=== PATIENT | male | born 1955 | race Caucasian/White ===

== ENCOUNTER → 2019-09-26 | Outpatient (CLI) | payer OTHER ==
[~2019-09-26] MED LIST: CHLO25 PO; Norco 5-325 Ta1 EACH PO; Ventolin/Prove6.7 GM INH
== END | disposition home or self-care (01) ==
LOC: OLS 16:38 → LAB SHORT 16:38
PROVIDERS: Family Medicine
DX: R94.4 Abnormal results of kidney function studies (principal)
CPT/HCPCS: 81050; 82570

== ENCOUNTER 2023-08-10 18:10 | Inpatient (IN) | payer MEDICARE, OTHER ==
[~2023-08-10] VITALS: Ht 170.2 cm; Wt 56.9 kg
[2023-08-10 18:36] LABS: Source, Urine Clean Catch
[2023-08-10 18:46] LABS: Appearance, Urine Clear (Clear); Bilirubin, Urine Neg (Neg); Blood, Urine Neg (Neg); Color, Urine Yellow (P-Yellow); Glucose Qualitative, Urine Neg (Neg); Ketones, Urine Neg (Neg); Leukocyte Esterase, Urine Neg (Neg); Nitrite, Urine Neg (Neg); Protein, Urine Neg (Neg); Specific Gravity, Urine 1.005 (1.003-1.022); Urobilinogen, Urine NORM (Normal)
[2023-08-10 19:34] LABS: BASOPHILS ABSOLUTE AUTO 0.07 K/mm3 (0.00-0.23); BASOPHILS PERCENT AUTO 1 % (0-2); EOSINOPHILS ABSOLUTE AUTO 0.03 K/mm3 (0.00-0.68); EOSINOPHILS PERCENT AUTO 0 % (0-6); Hematocrit 43.2 % (37.0-53.0); Hemoglobin 14.8 g/dL (13.5-17.5); IMMATURE GRAN ABSOLUTE AUTO 0.11 K/mm3 (0.00-0.10); IMMATURE GRAN PERCENT AUTO 1 % (0-1); LYMPHOCYTES ABSOLUTE AUTO 1.55 K/mm3 (0.84-5.20); LYMPHOCYTES PERCENT AUTO 11 % (21-46); MONOCYTES ABSOLUTE AUTO 1.21 K/mm3 (0.16-1.47); MONOCYTES PERCENT AUTO 9 % (4-13); Mean Corpuscular HGB 33.6 pg (26.0-34.0); Mean Corpuscular HGB Conc 34.3 g/dL (31.5-36.5); Mean Corpuscular Volume 98 fL (80-100); Mean Platelet Volume 9.9 fL (9.1-12.4); NEUTROPHILS ABSOLUTE AUTO 11.02 K/mm3 (1.96-9.15); NEUTROPHILS PERCENT AUTO 79 % (41-73); Platelet Count 269 K/mm3 (150-400); RDW Coefficient Variation 13.8 % (11.7-14.2); RDW Standard Deviation 49.8 fL (35.1-46.3); White Blood Cell Count 13.99 K/mm3 (4.00-11.30)
[2023-08-10 19:45] LABS: Albumin, Blood 2.7 g/dL (3.4-5.0); Albumin/Globulin Ratio 0.6 (0.8-1.8); Bilirubin, Total 0.9 mg/dL (0.1-1.0); Bun/Creatinine Ratio 1.8 (12.0-20.0); Calcium, Blood 8.5 mg/dL (8.5-10.1); Creatinine, Blood 0.57 mg/dL (0.60-1.20); Globulin, Blood 4.3 g/dL (2.2-4.0); Potassium, Blood 3.1 mmol/L (3.5-5.5)
[2023-08-11 03:04] LABS: Influenza A, PCR NEGATIVE (NEGATIVE); Influenza B, PCR NEGATIVE (NEGATIVE); Resp Syncytial Virus, PCR NEGATIVE (NEGATIVE); SARS-Cov-2 (COVID-19) PCR, MMC NEGATIVE (NEGATIVE)
[2023-08-11 03:30] VITALS: BP 98/63
[2023-08-11 03:32] LABS: BASOPHILS ABSOLUTE AUTO 0.02 K/mm3 (0.00-0.23); BASOPHILS PERCENT AUTO 0 % (0-2); EOSINOPHILS PERCENT AUTO 0 % (0-6); Hematocrit 36.4 % (37.0-53.0); Hemoglobin 12.5 g/dL (13.5-17.5); IMMATURE GRAN ABSOLUTE AUTO 0.15 K/mm3 (0.00-0.10); IMMATURE GRAN PERCENT AUTO 1 % (0-1); LYMPHOCYTES ABSOLUTE AUTO 0.21 K/mm3 (0.84-5.20); LYMPHOCYTES PERCENT AUTO 2 % (21-46); MONOCYTES PERCENT AUTO 2 % (4-13); Mean Corpuscular HGB 33.5 pg (26.0-34.0); Mean Corpuscular HGB Conc 34.3 g/dL (31.5-36.5); Mean Corpuscular Volume 98 fL (80-100); NEUTROPHILS ABSOLUTE AUTO 11.94 K/mm3 (1.96-9.15); NEUTROPHILS PERCENT AUTO 95 % (41-73); Platelet Count 180 K/mm3 (150-400); RDW Coefficient Variation 13.8 % (11.7-14.2); RDW Standard Deviation 49.5 fL (35.1-46.3); Red Blood Cell Count 3.73 M/mm3 (4.30-5.90); White Blood Cell Count 12.62 K/mm3 (4.00-11.30)
[2023-08-11 04:04] VITALS: BP 99/78
[2023-08-11 04:09] LABS: Albumin, Blood 2.2 g/dL (3.4-5.0); Albumin/Globulin Ratio 0.6 (0.8-1.8); Bilirubin, Total 0.8 mg/dL (0.1-1.0); Bun/Creatinine Ratio 5.8 (12.0-20.0); Calcium, Blood 7.3 mg/dL (8.5-10.1); Creatinine, Blood 0.52 mg/dL (0.60-1.20); Globulin, Blood 3.5 g/dL (2.2-4.0); Potassium, Blood 3.4 mmol/L (3.5-5.5); Total Protein, Blood 5.7 g/dL (6.4-8.2)
--- NOTE | 2023-08-11 06:42 | NUR ---
PT ADMITTED TO PCU 19 AT 0330. MOVED TO BED VIA SLIDER SHEET. ALERT, ORIENTED X 2-3 BUT FORGETFUL, NEEDS REMINDING WHY HE IS IN THE HOSPITAL. DENIES ANY SOB, CHEST PAIN/PRESSURE, OR NAUSEA. BP STABLE WITH HR SR IN 70-80'S. O2 SATS > 90 WHILE AWAKE. PLACED ON 5 LPM VIA NC BY [facility] [employer] OR UNIV[facility] DUE TO DESATING TO 85% AND SUSTAINING. PT DENIES USING O2 AT HOME. PT IS LARGELY UNSURE OF HEALTH HX, REPORTS SISTER JORGE IS A NURSE AND HELPS WITH MEDICAL DECISIONS. REPORTS HE HAS DIFFICULTY SEEING AND IS [place]. CIWAH'S AT THIS TIME NEGATIVE. CALL LIGHT IN REACH. BED IN LOW POSITION. BED ALARM ON.
[2023-08-11 06:49] VITALS: BP 100/72
--- NOTE | 2023-08-11 07:15 | NUR ---
Received report from Jayna BATISTA. Patient awake in bed when entering room . He is alert and oriented and is able to commmunicate his needs. He admits to last drink almost a week ago and will continue to drink beer. He is on 3L O2 via NC and sats >90%. he has ongoing wet productive cough. His speech is clear but slow to answer. He is independent in bed for comfort. He is awaiting ST to eval and r/t possible aspiration. He has 20ga IV LW flusjed and SL'd, 20ga IV NENO and is infusing NS 75 ml/hr and potassium piggyback. He has SCD's bilateral and yellow fall risk socks.
--- NOTE | 2023-08-11 11:30 | NUR ---
ST by and changed diet to thickened liquids and puree diet. PT came by and up in chair, Patient setup for lunch. He is still oriented to to conversation and has intermitent confusion/short term memory. He continues on 3 L O2 Via NC and sats >90%. Sister called and agve updates and will be coming by. Patient states willing to go to [facility]. Patient remaisn very weak and unconditioned. SCD's in place.
--- NOTE | 2023-08-11 18:30 | NUR ---
No significant changes with patient. He went back to bed from Chair. He has been incontinent of stool and a couple times urine. He has been assisted to bedside cammode a couple times as well. He has been on 3L O2 a nd reduced to 2 L O2 via NC and sats >90%. He MAEW but really weak and needs alot more PT OT and is cooperative with care. He has been tolerating his puree diet and pills in apple sauce. Family has been by and went home after brief stay and updates.
[2023-08-11 20:02] VITALS: BP 99/75
--- NOTE | 2023-08-11 20:11 | NUR ---
ASSUMED PT CARE FROM RN ON HI. SITTING UP IN BED WATCHING TV. ASSISTED PT TO CALL SISTER, LEFT PT WITH PHONE RINGING. RETURN APPROXIMENTLY 15 MINUTES LATER, PT DOES NOT REMEMBER CALLING SISTER. ORIENTED TO SELF, LOCATION, BUT DOES NOT KNOWN DATE. PLEASANT AND COOPERATIVE. FREQUENT REORIENTATION. DENIES ANY SOB OR CHEST PAIN. O2 SATS > 90% ON 2 LPM VIA NC. RESPIRATIONS EVEN AND UNLABORED. PT HAS MOIST, OCCAIONALLY PRODUCTIVE COUGH. HR IN 60'S, NOT ON TELEMETRY. BP STABLE, SEE RECORDED VITAL SIGNS. ASSISTED PT TO SELECT DESIRECT CHANNEL ON TV. DENIES FURTHER NEEDS AT THIS TIME. CALL LIGHT IN REACH. BED IN LOW POSITION.
[2023-08-12 00:07] VITALS: BP 104/73
[2023-08-12 03:51] VITALS: BP 99/70
[2023-08-12 04:18] LABS: Hematocrit 32.9 % (37.0-53.0); Mean Corpuscular HGB 33.7 pg (26.0-34.0); Mean Corpuscular HGB Conc 33.4 g/dL (31.5-36.5); Mean Corpuscular Volume 101 fL (80-100); Platelet Count 206 K/mm3 (150-400); RDW Coefficient Variation 14.1 % (11.7-14.2); Red Blood Cell Count 3.26 M/mm3 (4.30-5.90); White Blood Cell Count 15.28 K/mm3 (4.00-11.30)
[2023-08-12 04:46] LABS: Calcium, Blood 7.5 mg/dL (8.5-10.1); Creatinine, Blood 0.57 mg/dL (0.60-1.20); Potassium, Blood 3.8 mmol/L (3.5-5.5); Thyroid Stimulating Hormone 1.75 uIU/mL (0.360-4.800)
--- NOTE | 2023-08-12 05:57 | NUR ---
SHIFT SUMMARY: NO ACUTE CHANGES NOTED DURING THIS SHIFT. VITAL SIGNS REMAIN STABLE. PT NEED REORIENTATION WHEN AWAKENED, BELIEVING HE WAS AT HOME. RELUCTENTLY AGREEING TO CARE IN THE MIDDLE OF THE NIGHT. REPOSITIONS SELF IN BED FOR COMFORT. USES URINAL WITH DIFFICULTY, ASSISTANCE NEEDED DUE TO POOR VISION. CIWAH'S LOW, SEE PT RECORD. CALL LIGHT IN REACH. BED IN LOW POSITION.
[2023-08-12 06:41] VITALS: BP 109/68
--- NOTE | 2023-08-12 07:09 | NUR ---
Received in room report from Jayna BATISTA. He is awake and watching TV. He is alert and oriented to self and able to hold conversation. He has short term memory and gets agitated as he thinks at times he is at his house and why are we there, re-directs easily. He is on RA and sats >95%. He is minimal full one person assist to bedside cammode. He is at times incontinent to stool and urine and calls at times for help. He has urinal at bedside. He has 20ga IV to LW and 20ga IV to NENO [place] and [place] ABBOTT but very weal and is independent to positioning in bed.
[2023-08-12 15:55] VITALS: BP 97/63
--- NOTE | 2023-08-12 17:26 | NUR ---
SHIFT SUMMARY PT ALERT AND ORIENTED TO PERSON, PLACE, SITUATION, BUT NOT TIME. PT THINKS IT IS THE YEAR 2020. PT GETS CONFUSED AT TIMES. LAST SHIFT REPORTED THAT IT IS VERY HARD FOR PT TO SEE. PT IS WEAK AND SBA W/WALKER IS NEEDED. BED ALARM IS SET BC PT WILL ATTEMPT TO GET OUT OF BED WITHOUT CALLING. PT HAS BEEN ON RA SINCE BEGINNING OF SHIFT AND MAINTAINING O2 SATURATION ABOVE 92%, PT DENIES SOB. PT DENIES CHEST PAIN/PRESSURE, BP OF 97/63 AND MAP OVER 65, PULSE 60'S. PT IS INCONTNENT OF URINE AND BOWELS, HOWEVER HE DOES HAVE TIMES WHEN HE KNOWS HE NEEDS TO GO. PT USES URINAL WITH ASSISTANCE AND RESTROOM WITH SBA W/WALKER. IV TO LEFT UPPER ARM FLUSHED/PATENT/SALINE LOCKED. IV TO L LOWER ARM IS FLUSHED/PATENT/SALINE LOCKED. PT HAS HAD SEVERAL PHONE CALLS TODAY FROM FAMILY/FRIENDS. PT HAS SPENT MOST OF DAY RESTING IN BED AND WATCHING FOOTBALL. PT CURRENTLY EATING DINNER AND WATCHING TV. CALL LIGHT WITHIN REACH.
[2023-08-12 19:23] VITALS: BP 98/72
--- NOTE | 2023-08-12 20:01 | NUR ---
ASSUMED PT CARE FORM RN ON DAYSHI. UP TO BATHROM WITH UNSTEADY GAIT, ABLE TO AMBULATE ALL THE WAY TO TOILET. NEED CONSTANT DIRECTION DUE TO POOR EYESITE. PT ORINETED X 2 ONLY, EASILY REORIENTED AT THIS TIME. PLEASANT AND COOPERATIVE. DENIES ANY CHEST PAIN/PRESSURE. BP STABLE, SEE PT RECORD. PT MED NO TELE STATUES. HR 50-60'S. O2 SATS > 90% ON RA. DENIES FEELING SOB. MOIST, OCCAIONALLY PRODUCTIVE COUGH. RETURNED TO BED. REORIENTED TO CALL LIGHT. BED ALARM ON. WARM BLANKET PROVIDED FOR PT COMFORT.
[2023-08-13 02:01] VITALS: BP 113/72
--- NOTE | 2023-08-13 06:41 | NUR ---
SHIFT SUMMARY: PT HAVING FREQUENT URINARY URGES, FEELING NEED TO VOID BUT ONLY ABLE TO VOID MINIMAL AMOUNT. BLADDER SCANNED FOR MAX OF 50 ML. DISCUSSED WITH PUSHPINGER HENRY DIRECT MARKETING COORDINATOR, NO NEW ORDERS AT THIS TIME, WILL CONTINUE TO MONITOR. CIWAH'S CONTINUE TO BE 3-5. VITAL SIGNS STABLE, SEE PT CHART. CALL LIGHT IN REACH. BED IN LOW POSITION. BED ALARM ON.
[2023-08-13 06:51] VITALS: BP 96/60
--- NOTE | 2023-08-13 07:30 | NUR ---
PT ALERT AND ORIENTED TO SELF, PLACE, SITUATION, BUT NOT TIME. HE IS FORGETFUL BUT EASILY RE-DRECTED. HE IS ON RA AND MAINTAINNG 02 SATURATION ABOVE 92%, PT DENIES SOB. HIS HR 60'S, BP 96/60 W/ MAP ABOVE 65, PT DENIES CHEST PAIN/PRESSURE. PT WEAK YET ABLE TO USE COMMODE AND RESTROOM WITH WALKER AND STAND BY ASSIST. PT CAN ALSO USE URINAL WITH ASSISTANCE. PT HAS EPISODES OF INCONTINENCE, ATTENDS IN PLACE AND CHANGED PRN. PT SAID HIS EYE SIGHT IS VERY BAD. HE HAS 20G IV TO UPPER L ARM & L WRIST, BOTH PATENT/FLUSHED/SALINE LOCKED. BED ALARM IS SET, PT WILL ATTEMPT TO GET OUT OF BED WITHOUT CALLING. PT CURRENTLY SLEEPING IN BED WITH TV AND LIGHTS OFF. CALL LIGHT WITHIN REACH.
[2023-08-13 09:26] LABS: Hematocrit 39.6 % (37.0-53.0); Hemoglobin 13.6 g/dL (13.5-17.5); Mean Corpuscular HGB 34.3 pg (26.0-34.0); Mean Corpuscular HGB Conc 34.3 g/dL (31.5-36.5); Mean Corpuscular Volume 100 fL (80-100); Mean Platelet Volume 9.9 fL (9.1-12.4); Platelet Count 231 K/mm3 (150-400); Red Blood Cell Count 3.96 M/mm3 (4.30-5.90); White Blood Cell Count 11.21 K/mm3 (4.00-11.30)
[2023-08-13 09:39] LABS: Bun/Creatinine Ratio 5.5 (12.0-20.0); Calcium, Blood 8.1 mg/dL (8.5-10.1); Creatinine, Blood 0.54 mg/dL (0.60-1.20); Potassium, Blood 3.6 mmol/L (3.5-5.5)
--- NOTE | 2023-08-13 19:13 | NUR ---
SHIFT SUMMARY SEE PREVIOUS NOTE. ONLY CHANGE FROM PREVIOUS NOTE IS PT HAD SPEECH EVALUATION TODAY AND WAS PLACED NPO WITH THE EXCEPTION OF APPLESAUCE WITH MEDICATIONS. PT ALSO HAD A COG EVAL DONE BY OT AND FAILED. PT HAD A FEW VISITORS AT BEDSIDE THROUGHOUT THE DAY. PT CURRENTLY RESTING IN BED, CALL LIGHT WITHIN REACH.
[2023-08-13 21:31] VITALS: BP 93/69
[2023-08-14 00:35] VITALS: BP 91/66
[2023-08-14 04:42] VITALS: BP 110/70
--- NOTE | 2023-08-14 05:57 | NUR ---
SHIFT SUMMARY: PT ORIENTED X 2-3. PT FATIGUED DURING THIS SHIFT. NO ATTEMPTS TO STAND OR GET OUT OF BED. RESTING IN BED WITH EYES CLOSED FOR MAJORITY OF SHIFT. WAKES TO NOISE BUT MINIMAL INGAGEMENT IN CONVERSATION. COOPERATIVE AND PLEASANT. PLACED ON 2 LPM VIA NC DUE TO DESATURATIONS WHILE SLEEPING TO 88%. RESPIRATIONS EVEN AND UNLABORED, DOES NOT APPEAR IN ANY DISTRESS. NO COMPLAINTS OF CHEST PAIN/PRESSURE. HR IN 80'S. BP STABLE, SEE PT RECORD. REPOSITIONED FOR COMFORT Q2H. [facility] C[facility] PROVIDED PRN FOR INCONTINENT URINE. CALL LIGHT IN REACH. BED IN LOW POSITION. BED ALARM ON.
[2023-08-14 07:48] VITALS: BP 96/74
--- NOTE | 2023-08-14 17:57 | NUR ---
SHIFT SUMMARY PT ALERT AND ORIENTED 2-3, UNSURE OF WHAT MONTH OR YEAR IT IS, CONFUSED AT TIMES. PT SAID HIS EYESIGHT IS VERY POOR AND HE IS HARD OF HEARING. PT HAS BEEN LETHARGIC TODAY AND HAS SLEPT THE MAJORITY OF THE DAY. HR 80'S, BP 96/74, PT DENIES CHEST PAIN/PRESSURE. PT'S 02 SATURATION HAS REMAINED ABOVE 92% ON RA, HE DENIES SOB. PT CONTINUES TO BE INCONTINENT, BRIEF ON AND CHANGED PRN. HE HAD A BED BATH TODAY AND ALL NEW LINENS AND HAIR WASHED. PT FAILED SPEECH EVAL AGAIN TODAY. PLAN OF NOW IS FOR PT TO HAVE BARRIUM SWALLOW EVALUATION PERFORMED TOMORROW. SPOKE WITH MD REGARDING POSSIBLE PPN NUTRITION, FLUIDS, AND LABS BEING ORDERED AND THEY SAID THEY WOULD PLACE ORDERS IF APPROPRIATE. PT'S SISTER VISITED HIM TODAY. SHE CALLED AND SAID THAT SHE WAS ABLE TO GET AN APPOINTMENT WITH [employer] FOR EMERGENCY [employer] NEXT SUNDAY, CARE MANAGEMENT AND [facility] [employer] WORKING WITH PT'S SISTER. PT CURRENTLY RESTING IN BED WITH TV ON AND CALL LIGHT WITHIN REACH.
[2023-08-14 19:52] VITALS: BP 110/85
--- NOTE | 2023-08-14 23:10 | NUR ---
PHYSICIAN CONTACT CALL PLACED TO MD REGARDING FLUIDS FOR PT. PT IS NPO EXCEPT FOR PILLS W/ APPLESAUCE. NO CURRENT FLUIDS ARE RUNNING, PLAN FOR BARIUM SWALLOW. ORDER RECEIVED TO START LR AT 75 ML/HR AT THIS TIME.
[2023-08-15 03:37] VITALS: BP 123/77
[2023-08-15 04:02] LABS: Hematocrit 40.2 % (37.0-53.0); Hemoglobin 13.6 g/dL (13.5-17.5); Mean Corpuscular HGB 33.7 pg (26.0-34.0); Mean Corpuscular HGB Conc 33.8 g/dL (31.5-36.5); Mean Corpuscular Volume 100 fL (80-100); Mean Platelet Volume 9.6 fL (9.1-12.4); Platelet Count 244 K/mm3 (150-400); RDW Standard Deviation 51.8 fL (35.1-46.3); Red Blood Cell Count 4.04 M/mm3 (4.30-5.90); White Blood Cell Count 11.05 K/mm3 (4.00-11.30)
[2023-08-15 04:24] LABS: Albumin, Blood 2.2 g/dL (3.4-5.0); Albumin/Globulin Ratio 0.6 (0.8-1.8); Bilirubin, Total 0.9 mg/dL (0.1-1.0); Calcium, Blood 8.1 mg/dL (8.5-10.1); Creatinine, Blood 0.63 mg/dL (0.60-1.20); Globulin, Blood 3.5 g/dL (2.2-4.0); Potassium, Blood 3.1 mmol/L (3.5-5.5); Total Protein, Blood 5.7 g/dL (6.4-8.2)
--- NOTE | 2023-08-15 05:18 | NUR ---
END OF SHIFT NOTE: NO ACUTE EVENTS OVERNIGHT. PT REMAINS ALERT, ORIENTED X1-2. CONFUSED BUT COOPERATIVE W/ CARE. ABLE TO COMMUNICATE NEEDS W/ STAFF. VSS. HR 60-70'S, NO TELEMETRY PER ORDERS. SBP 110-120'S, MAP >65. PT DENIES CHEST PAIN/PRESSURE. SPO2 >93% ON RA; 2-3L VIA NC APPLIED WHILE SLEEPING DUE TO DESATTING INTO 80'S. LOOSE, NONPRODUCTIVE COUGH OVERNIGHT. AFEBRILE. LR INFUSING AT 75 ML/HR PER EMAR. PT REMAINS NPO AT THIS TIME, ANTICIPATING BARIUM SWALLOW DURING DAY SHIFT. ATTENDS CHANGED TO KEEP C/D/I PT IS INCONTINENT. NO BM'S. MINIMAL SLEEP OVERNIGHT. NO OTHER NEEDS AT THIS TIME. CALL LIGHT WITHIN REACH, BED IN LOWEST POSITION. WILL REPORT TO ONCOMING RN.
[2023-08-15 07:25] VITALS: BP 115/93
--- NOTE | 2023-08-15 08:59 | NUR ---
AM NOTE: PATIENT ALERT TO SELF AND OCCASIONALLY PERSON. PATIENT RECOGNIZES COUSIN UPON ENTERING ROOM. SLOW TO RESPOND. PERRLA. FOLLOWING SIMPLE COMMANDS. VERY WEAK THROUGHOUT. PT/OT ORDERS IN PLACE. MEDICAL STATUS NO TELE. BP STABLE. PPP. DENIES CHEST PAIN/PRESSURE/PALITATIONS. ON ROOM AIR SATING ABOVE 95% LUNGS SOUNDING COARSE THROUGHOUT. FREQUENT LOOSE/MOIST COUGH, UNABLE TO PRODUCE ANY SPUTUM UPON COUGHING. SUCTION AT BEDSIDE. BOWEL TONES PRESENT. NPO AT THIS TIME. PLAN FOR BARRIUM SWALLOW TEST TODAY WITH SPEECH THERAPY. CALL LIGHT IN REACH. ATTENDS IN PLACE. COUSIN AT BEDSIDE.
--- NOTE | 2023-08-15 10:33 | NUR ---
PATIENT LEFT FOR BARRIUM SWALLOW STUDY AT THIS TIME.
--- NOTE | 2023-08-15 10:58 | NUR ---
UPDATE PROVIDED BY THIS RN TO SISTER JUWAN.
[2023-08-15 11:10] VITALS: BP 101/81
--- NOTE | 2023-08-15 12:41 | NUR ---
PATIENT FAILED BARIUM SPEECH STUDY WITH RECOMMENDATIONS FOR DOBHOFF PLACEMENT. DISCUSSED POSSBLE DOBHOFF WITH PATIENT IN SIMPLE TERMS AND PATIENT WANTING DOBHOFF AND TUBE FEEDING. THIS RN ALSO PLACED CALL TO SITER JUWAN TO UPDATE. DR. CASTANO CALLED. ORDERS FOR DOBHOFF WITH CHEST XRAY TO CONFIRM PLACEMENT AND DIETARY CONSULT. ORDERS IN PLACE, DOBHOFF PLACED BY THIS RN AND WASTE DISPOSAL LEAKAGE TESTER AT BEDSIDE. DOBHOFF CURRENTLY SITTING AT LEFT NARE AT 55CM. CHEST XRAY COMPLETED AND WAITING FOR RESULTS. PATIENT HAVING TO BE REMINDED TO NOT PULL AT TUBE. CALL LIGHT IN REACH. PATIENT SITTING UP IN BED WATCHING TV. IV FLUIDS INFUSING PER EMAR.
--- NOTE | 2023-08-15 12:48 | NUR ---
TUBE PLACEMENT CONFIRMED BY RADIOLOGY, METAL GUIDE WIRE REMOVED BY THIS RN.
--- NOTE | 2023-08-15 13:30 | NUR ---
THIS RN AT BEDSIDE SINCE DOBHOFF PLACEMENT AND PATIENT NEEDING FREQUENT REMINDERS TO NOT PULL AT DOBHOFF. PATIENT DOES WELL WITH VERBAL REDIRECTION. VIRTUAL MONITORING SET UP FOR SAFETY OF PATIENT/DOBHOFF.
[2023-08-15 15:20] VITALS: BP 105/64
--- NOTE | 2023-08-15 17:44 | NUR ---
SHIFT SUMMARY: NO ACUTE CHANGES. PATIENT REMAINS MEDICAL WITH NO TELE. SLEEPING MOST OF SHIFT, BUT WAKES TO TOUCH AND VOICE. OVERALL VERY WEAK. DIETARY CONSULT IN PLACE TO START TUBE FEED. DOBHOFF REMAINS IN PLACE AT 55CM AT LEFT NARE. VIRTUAL MONITORING IN PLACE. FRIENDS AT BEDSIDE THROUGHOUT SHIFT VISITNG WITH PATIENT. VITALS REMAINS STABLE. NPO WITH Q4 ORAL CARE. ON ROOM AIR - 2L NASAL CANNULA. NEEDING O2 WHEN PATIENT IS SLEEPING. DENIES PAIN. Q2 TURNING AND NEEDED. PATIENT INCONTINENT OF URINE. NO BOWEL MOVEMENT THIS SHIFT. CALL LIGHT IN REACH. BED ALARM IN PLACE.
[2023-08-15 19:21] VITALS: BP 99/71
--- NOTE | 2023-08-15 20:31 | NUR ---
PHYSICIAN CONTACT/RESTRAINTS PT IN BED W/ AVASURE CAMERA AT BEDSIDE. AVASURE CAMERA HAS ALARMED FREQUENTLY DUE TO PT CONTINUOUSLY TOUCHING AND PULLING DOBHOFF AND O2 NASAL CANNULA. CONCERN FOR ASPIRATION W/ DOBHOFF REMOVAL WHILE TUBE FEED IS INFUSING. CALL PLACED TO SANDIP KOENIG. ORDERS RECEIVED FOR MITT RESTRAINT INITIATION DUE TO PULLING AT DOBHOFF AND O2 CANNULA. RESTRAINTS INITIATED AT 2020, SEE DOCUMENTATION FOR DETAILS. ALUMINUM FABRICATION SUPERVISOR AWARE, PT EDUCATED ON RESTRAINT INITIATION. AVASURE CAMERA REMAINS IN PLACE FOR PT SAFETY. CALL LIGHT IN REACH.
[2023-08-16] VITALS (16 sets, daily range): BP systolic 89–116; BP diastolic 57–92
[2023-08-16 04:39] LABS: Calcium, Blood 7.9 mg/dL (8.5-10.1); Creatinine, Blood 0.5 mg/dL (0.60-1.20); Potassium, Blood 3.3 mmol/L (3.5-5.5)
--- NOTE | 2023-08-16 05:07 | NUR ---
END OF SHIFT NOTE: NO ACUTE EVENTS OVERNIGHT. PT REMAINS ALERT, ORIENTED X1-2. CONFUSED BUT COOPERATIVE W/ CARE. AVASURE CAMERA IN PLACE, MITT RESTRAINTS TO BILATERAL HANDS FOR PT SAFETY D/T FREQUENTLY TOUCHING/PULLING DOBHOFF. MEDICAL W/O TELE STATUS. VSS. HR 80'S. SBP 90'S, MAP >65. PT DENIES CHEST PAIN/PRESSURE. SPO2 >93% ON RA; 2L VIA NC APPLIED WHILE SLEEPING. LOOSE, NONPRODUCTIVE COUGH OVERNIGHT. AFEBRILE. PT REMAINS PROFOUNDLY WEAK. DOBHOFF INFUSING TUBE FEED AT GOAL RATE OF 25 ML/HR. LR INFUSING AT 75 ML/HR PER EMAR. PT REMAINS STRICT NPO AT THIS TIME. ORAL CARE PERFORMED TO SUCTION. ATTENDS CHANGED TO KEEP C/D/I PT IS INCONTINENT. NO BM'S. REPOSITIONED Q2HRS AND PRN FOR COMFORT. NO OTHER NEEDS AT THIS TIME. CALL LIGHT WITHIN REACH, BED IN LOWEST POSITION. BED ALARM ON. WILL REPORT TO ONCOMING RN.
--- NOTE | 2023-08-16 08:23 | NUR ---
AM NOTE: UPON SHIFT START PATIENT SLEEPING IN BED WITH BILATERAL MITTS IN PLACE TO PREVENT DOBHOFF BEING PULLED. PATIENT WAKES EASILY TO TOUCH/VOICE BUT KEEPS EYES CLOSED. ABLE TO TELL ME HIS NAME AND THAT HE IS IN [place]. UNABLE TO TELL ME DETAILS AND NOT ABLE TO TELL ME . DENIES PAIN. DENIES NUMBNESS/TINGLING. OVERALL VERY WEAK. Q2 TURNING AND NEEDED. BEDREST AT THIS TIME. PT/OT ORDERS IN PLACE. BED ALARM ON AND VIRTUAL MONITORING FOR SAFETY. MEDICAL STATUS NO TELE. BP STABLE. DENIES CHEST PAIN/PRESSURE/PALPITATIONS. NO EDEMA NOTED. SC LOVENOX GIVEN THIS AM PER EMAR. IV FLUIDS INFUSING PER EMAR. ON ROOM AIR AT THIS TIME SATING ABOVE 95%. VERY WEAK LOOSE/MOIST SOUNDING COUGH. COUGHING FREQUENTLY AND UNABLE TO PRODUCE ANY SPUTUM. AT TIMES NEEDING UP TO 2L NASAL CANNULA WHEN SLEEPING. LUNGS SOUNDING COARSE THROUGHOUT. SUCTION AT BEDSIDE. Q4 ORAL CARE AND NEEDED. PATIENT STRICT NPO. DOBHOFF IN LEFT NARE MARKED AT 55CM. TUBE FEEDING INFUSING PER ORDERS. DIETARY AND SPEECH CONSULTS IN PLACE. BOWEL TONES PRESENT. ATTENDS IN PLACE. PATIENT INCONTINENT. SKIN OVERALL SCATTERED BRUISING AND SCABS. LEFT UPPER ARM SKIN TEAR WITH DRESSING IN PLACE. DR. OMAIRA LONG WITH THIS RN AT BEDSIDE. NO NEW ORDERS. CALL LIGHT IN REACH. PATIENT SLEEPING AT THIS TIME.
[2023-08-16 10:03] LABS: Magnesium, Blood 1.9 mg/dL (1.6-2.4)
--- NOTE | 2023-08-16 12:02 | NUR ---
TUBE FEED ADVANCED TO 35ML/HR PER DIETARY. PATIENT CONTINUES TO TOLERATE TUBE FEED. AFTERNOON VITALS STABLE. THIS RN PLACED CALL TO SISTER JUWAN TO UPDATE. SISTER JUWAN STATES SHE IS MEETING WITH DOCUMENT CLERK ON SUNDAY TO DISCUSS GU[employer]IAN[employer]. PATIENT CONTINUES TO DENY PAIN. REMAINS ON ROOM AIR. CONTINUES TO HAVE FREQUENT NONPRODUCTIVE LOOSE/MOIST SOUNDING COUGH. BED ALARM IN PLACE.
--- NOTE | 2023-08-16 16:49 | NUR ---
PATIENT TO CT AT THIS TIME. SISTER JORGE CALLED THIS RN WITH CONCERNS OF PATIENT NOT IMPROVING AND DECLINING IN WEAKNESS/MENTATION IN COMPARISION OF WHAT PATIENT WAS ABLE TO DO THIS WEEKEND SUCH GETTING UP TO BATHROOM WITH ASSISTANCE OR ALERTING STAFF OF NEEDING TO USE RESTROOM. THIS RN VOICED SISTER CONCERNS TO DR. LORA. DR. LORA TO PLACE ORDER FOR CT OF HEAD WITHOUT CONTRAST. PRIOR TO CT TRANSFER THIS RN PREFORMED FOCUSED NEURO ASSESSMENT - PATIENT ABLE TO TELL ME NAME, AND WHERE HE IS. PATIENT EVEN ABLE TO SPELL LAST NAME FOR THIS RN. MARCY. VOICE MUMBLED AND SLOW TO RESPOND. ABLE TO FOLLOW SIMPLE COMMANDS SUCH STICKING TONGUE OUT, RAISING EYEBROWS, SMILING, LIFTING ARMS, SQUEEZING THIS RN HANDS, WIGGLING TOES AND MOVING EXTEMITIES EQUALLY. NOTE MOVEMENTS ARE VERY WEAK AND SLOW, PATIENT ONLY ABLE TO HOLD ARMS UP BRIEFLY AND [employer] FLATBED DRIVER STRENGTH VERY WEAK. PATIENT DENIES PAIN. DENIES NUMBNESS/TINGLING. REMAINS ON ROOM AIR, CONTINUES TO HAVE FREQUENT MOIST/LOOSE SOUNDING COUGH.
--- NOTE | 2023-08-16 18:26 | NUR ---
DR. LORA TO CALL SISTER TO UPDATE ON CT RESULTS.
--- NOTE | 2023-08-16 20:00 | NUR ---
TRANSFER TO ICU: RECEIVED REPORT FROM CHASE BATISTA. PT ARRIVED TO ICU 10 FROM PCU 19 AT 1999. PT SLID OVER TO ICU BED WITH MAX ASSIST. BELONGINGS SENT OVER WITH PT. PT ALERT AND ORIENTED TO PERSON AND PLACE. ABLE TO ANSWER SOME SIMPLE QUESTIONS AND FOLLOW SOME SIMPLE COMMANDS. PUPILS EQUAL AND REACTIVE. PT ABLE TO SQUEEZE HANDS AND WIGGLE TOES, WEAKNESS NOTED MORE ON LEFT SIDE COMPARED TO RIGHT SIDE. SMALL LEFT SIDED FACIAL DROOP NOTED. PT ON RA WITH 2L NC WHILE SLEEPING. SPO2 >95%. LUNGS COARSE. ACID PURIFIER IN PLACE, SR WITH HR 70'S. SBP 90'S. LR INFUSING AT 75 ML/HR. TUBE FEED AT GOAL THROUGH DOBHOFF. ATTENDS IN PLACE, CLEAN AND DRY. NO BM YET. HOSPITALIST UPDATED TO PT CONDITION, FAMILY CALLED AND DECIDED THEY DO NOT WANT TO PROCEED WITH TRANSFER TO HIGHER LEVEL OF CARE. CODE STATUS UPDATED PER HOSPITALIST. PIV'S IN PLACE, PATENT. SKIN TEAR TO NENO, NEW DRESSING APPLIED.
--- NOTE | 2023-08-16 20:33 | NUR ---
TRANSFER TO ICU THIS RN ASSUMED CARE OF PT AT 1915. ON ASSESSMENT, PT ALERT, ANI TO STATE NAME, , AND FAMILY MEMBERS' NAMES. STATES HE IS IN [place], UNABLE TO RECALL YEAR. SPEECH IS SLOW AND DELAYED. PERRLA. STRENGTH PROFOUNDLY WEAK, ABLE TO MOVE BILATERAL UPPER AND LOWER EXTREMITIES. MOVEMENT IS VERY SLOW. SENSATION INTACT BILATERALLY. PT DENIES HEADACHE, PAIN. VSS, BP SOFT W/ MAP >65. HR 60'S, NSR ON TELE. SPO2 >93% ON RA. MITT RESTRAINTS AND AVASURE CAMERA IN PLACE TO PREVENT PT FROM REMOVING DOBHOFF. DOBHOFF INFUSING AT 35 ML/HR. LR INFUSING AT 75 ML/HR PER EMAR. PT TO BE MOVED TO ICU FOR POSSIBLE TRANSFER TO NEUROLOGY UNIT D/T SUBDURAL HEMATOMA. REPORT GIVEN TO CHERIE BATISTA IN ICU TO ASSUME CARE. PT WAS TRANSFERRED TO ICU10 AT APPROX 1999. MITT RESTRAINTS OFF FOR TRANSFER. PHYSICIAN IN CONTACT W/ PT'S FAMILY REGARDING PLAN OF CARE.
[2023-08-17] VITALS (42 sets, daily range): BP systolic 73–126; BP diastolic 53–103
[2023-08-17 03:52] LABS: Bun/Creatinine Ratio 13.6 (12.0-20.0); Calcium, Blood 7.6 mg/dL (8.5-10.1); Creatinine, Blood 0.44 mg/dL (0.60-1.20); Phosphorus, Blood 3.2 mg/dL (2.5-4.9); Potassium, Blood 4.1 mmol/L (3.5-5.5)
--- NOTE | 2023-08-17 06:22 | NUR ---
SHIFT SUMMARY: PT REMAINS ALERT AND ORIENTED TO PERSON AND PLACE. ABLE TO ANSWER SIMPLE QUESTIONS AND FOLLOW SIMPLE COMMANDS. PUPILS REMAIN EQUAL AND REACTIVE. ABLE TO MOVE EXTREMETIES WITH MILD WEAKNESS IN LEFT SIDE COMPARED TO RIGHT. SMALL LEFT SIDE FACIAL DROOP NOTED. CT SCAN DONE THIS AM. PT ON RA/2L WHILE SLEEPING. SPO2 >95%. NO C/O SOB. DIE CAST TECHNICIAN REMAINS, SR WITH HR 80'S. SBP 100'S. DENIES CHEST PAIN OR PRESSURE. DENIES PAIN ANYWHERE. LR INFUSING AT 150 ML/HR. TUBE FEED AT GOAL THROUGH DOBHOFF. CONDOM CATH IN PLACE, DRAINING YELLOW URINE. PIV'S INTACT. BED LOW AND LOCKED.
[2023-08-17 13:05] LABS: Hematocrit 36.1 % (37.0-53.0); Hemoglobin 12.6 g/dL (13.5-17.5)
--- NOTE | 2023-08-17 17:10 | NUR ---
SHIFT SUMMARY PT HAS REMAINED AWAKE AND ALERT THROUGHOUT THE SHIFT. PT REMAINS FORGETFUL AND CONFUSED, BUT PT IS ABLE TO ANSWER SOME QUESTIONS APPROPRIATELY. PT SPEECH IS MORE CLEAR THIS AFTERNOON. PT CONTINUES TO ATTEMPT TO PULL AT LINES/TUBES. MITTS TO BILAT HANDS REMAIN IN PLACE. VITAL SIGNS HAVE REMAINED STABLE. PT ON ROOM AIR. DOBHOFF REMAINS IN PLACE WITH TF INFUSING AT GOAL RATE. PT SEEN BY SPEECH THERAPY THIS SHIFT AND REMAINS NPO AT THIS TIME. IV'S REMAIN IN PLACE, SALINE LOCKED. PT WITH MULTIPLE INCONTINENT VOIDS THIS SHIFT. ATTENDS IN PLACE. MULTIPLE PT FAMILY MEMBERS AT BEDSIDE THROUGHOUT THE DAY. WILL CONTINUE TO MONITOR AND REPORT OFF TO ONCOMING RN.
--- NOTE | 2023-08-17 19:15 | NUR ---
ASSUMPTION OF CARE: RECEIVED REPORT FROM ARYA BATISTA. PT ALERT AND ORIENTED TO PERSON AND SELF. CONFUSED AT TIMES AND PULLING AT LINES AND DOBHOFF. PT PULLED MITTS OFF AND REMOVED DOBHOFF, STATES HE IS AT HOME AND NO LONGER NEEDS IT. REPLACED DOBHOFF, PLACEMENT CONFIRMED WITH CHEST X-RAY AND OK TO USE PER HOSPITALIST. PT PLACED PT IN SOFT RESTRAINTS, PT NOT REDIRECTABLE AND EASILY FORGETFUL. PT ON RA WITH SPO2 >90%. DENIES SOB. 2L NC WHILE SLEEPING. LUNGS COARSE T/O. SENIOR ANIMATOR IN PLACE, SR WITH HR 50'S. SBP 110'S. DENIES CHEST PAIN/PRESSURE. PUPILS EQUAL AND REACTIVE, DENIES HEADACHE. SMALL FACIAL DROOP NOTED ON LEFT SIDE, SLIGHTLY WEAKER IN LEFT THAN RIGHT. TUBE FEED AT GOAL. VOIDING INCONTINENTLY INTO ATTENDS. NO BM YET. PIV'S INTACT AND SALINE LOCKED. CALL LIGHT IN REACH.
--- NOTE | 2023-08-17 19:21 | NUR ---
Pt more alert interacting with family. physician at bedside to review care with pt sister a retired nurse. Review of pronosis and possible care plans. sister called me later to review his needs and plan of care. We discussed many levels of his care and pronosis. plan is to try feeding and rehab. Her hope is he can get some quality time. Advised her that if he declines further we cannot restrain him and feed him it is forced feeding and not ethical. She was very understanding. He is a who has not used his benefits. He owns some property but is very low on income. reviewed some of the medicaid process. reviewed when to look at hospice care for his dignity and comfort if he declines. She is realistic and wants to give him a chance to live. Will continue to follow. she has contacted senior service and contacted an customer facilities supervisor.
--- NOTE | 2023-08-18 02:47 | NUR ---
TRANSFER IN HOUSE ASSUMED CARE OF PT AT 0200. PT IS ALERT TO SELF. PT IN SOFT RESTRAINTS DUE TO PULLING OUT DOBHOFF. PT LUNG SOUNDS COURSE. TUBE FEEDING AT GOAL RATE. PT PLEASENT BUT FORGETFUL.
[2023-08-18 05:03] VITALS: BP 99/58
--- NOTE | 2023-08-18 06:23 | NUR ---
SHIFT SUMMARY PT HR WAS KE[place] TO 40S BPM WHILE SLEEPING. PT STILL REMAINED CONFUSED AND PULLING ON RESTRAINTS.
[2023-08-18 08:19] VITALS: BP 102/62
[2023-08-18 08:26] LABS: Albumin, Blood 2.1 g/dL (3.4-5.0); Anion Gap 5 mmol/L (6-16); Blood Urea Nitrogen 11 mg/dL (8-24); Bun/Creatinine Ratio 25.8 (12.0-20.0); CO2, Blood 28 mmol/L (21-32); Calcium, Blood 8.3 mg/dL (8.5-10.1); Chloride, Blood 105 mmol/L (98-108); Creatinine, Blood 0.43 mg/dL (0.60-1.20); Glomerular Filtration Rate 118 (60-); Glucose, Blood 149 mg/dL (70-99); Magnesium, Blood 2.1 mg/dL (1.6-2.4); Phosphorus, Blood 3.1 mg/dL (2.5-4.9); Potassium, Blood 4.3 mmol/L (3.5-5.5); Sodium, Blood 138 mmol/L (136-145)
--- NOTE | 2023-08-18 12:18 | NUR ---
PATIENT FOUND WITH MITTS OFF AND HAS PULLED OUT DOBHOFF NG TUBE. CALL MADE TO HOPITALIST TO INFORM. AND UPDATED PATIENT SISTER JUWAN.
--- NOTE | 2023-08-18 13:04 | NUR ---
Pt resting in bed upon arrival. Primary RN Jaim at bedside. Pt pulled his dobhoff out just prior to this RN's arrival. Pt is A&OX2. Pt unable to verbalize place, town, or current year. Spoke with Dr Sherwood at PCU Nurse's station. Plan is to D/C Dobhoff, currently no need for PO medication and will continue Decadron IV. Palliative Care will remain available
[2023-08-18 15:42] VITALS: BP 93/63
--- NOTE | 2023-08-18 16:33 | NUR ---
SHIFT SUMMARY PATIENT IS AOX-1, UNABLE TO FOLLOW DIRECTIONS. PATIENT DID TAKE OUT NG TUBE TODAY, TALKED WITH BOTH PALLIATIVE CARE AND DR. LORA AND CURRENTLY NOT REPLACING NG TUBE WILL HYDRATE WITH IV FLUIDS. FAMILY MEMBER JUWAN UPDATED AND AGREES WITH PLAN OF CARE. PATIENT VOIDING WELL, RESTRAINTS DC'D TODAY AND PATIENT HAS NOT TRIED PULLING ON IV. NO OTHER ACUTE ISSUES THIS SHIFT VSS. BED ALARM IS ON AND REPOSITIONED Q2.
[2023-08-18 19:00] VITALS: BP 93/65
[2023-08-18 19:20] VITALS: BP 93/65
--- NOTE | 2023-08-19 03:12 | NUR ---
AOC: PATIENT A/O X 1, COOPERATIVE WITHCARE REPORTED SELF DC OF DOBHOFF 12/16 AM. FAILED SPEECH STRICT NPO. DENIES CHEST PAIN PRESSURE OR SOB. REFUSING OXYGEN SUPPORT, SPOT SPO2>94%. CONDOM CATH IN [place] INFUSING LR, VERY MINIMAL FACIAL DROOP AND MIN LEG WEAKNESS. NO ACTIVE CONCERNS FROM THIS RN BESIDES BATTERY PLATE REMOVER PLAN OF CARE.
[2023-08-19 04:09] LABS: Hematocrit 35.9 % (37.0-53.0); Hemoglobin 12.4 g/dL (13.5-17.5)
[2023-08-19 04:33] LABS: Bun/Creatinine Ratio 27.3 (12.0-20.0); Calcium, Blood 8.1 mg/dL (8.5-10.1); Creatinine, Blood 0.48 mg/dL (0.60-1.20); Potassium, Blood 3.8 mmol/L (3.5-5.5)
[2023-08-19 07:35] VITALS: BP 111/71
[2023-08-19 16:34] LABS: Hemoglobin 12.7 g/dL (13.5-17.5)
[2023-08-19 16:50] VITALS: BP 119/73
--- NOTE | 2023-08-19 17:40 | NUR ---
SHIFT SUMMARY: PT ALERT, PLEASANTLY CONFUSED, COOPERATIVE W/CARE. MILD L SIDE WEAKNESS CONSISTENT T/OUT THE DAY. RESPIRATORY AND CARDIOVASCULAR REMAIN UNCHANGED. PT CURRENTLY NPO, PENDING ST EVAL IN THE AM. ORAL CARE PROVIDED Q4H, PT REPOSITIONED Q2H. CONDOM CATHETER PATENT, DRAINING TO GRAVITY. AT THIS TIME, PT RESTING QUIETLY IN BED. WILL CONTINUE TO MONITOR AND TREAT ACCORDINGLY UNTIL CHANGE OF SHIFT.
[2023-08-19 20:14] VITALS: BP 117/72
--- NOTE | 2023-08-19 23:05 | NUR ---
AOC: STILL INFUSING LR. IMPROVED COGNITION MINIMALLY. STILL PENDING ST RE-EVAL. DENIES CHEST PAIN PRESSURE OR SOB VSS. AFEBRILE. MED STATUS. WILL CONTINUE TO MONITOR. SCD'S IN PLACE. ORAL CARE DECLINED AT THIS TIME.
[2023-08-20 03:40] VITALS: BP 107/73
[2023-08-20 04:16] LABS: Hematocrit 35.8 % (37.0-53.0)
[2023-08-20 04:34] LABS: Bun/Creatinine Ratio 28.9 (12.0-20.0); Calcium, Blood 7.9 mg/dL (8.5-10.1); Creatinine, Blood 0.45 mg/dL (0.60-1.20); Potassium, Blood 3.6 mmol/L (3.5-5.5)
--- NOTE | 2023-08-20 06:18 | NUR ---
NO CHANGES FROM AOC, MINUS BM THROUGHOUT THE NIGHT, WAS MORE DISORIENTED, BUT COULD STILL FORM SENTENCES, AND WAS ACTUALLY ABLE TO SLEEP. STILL DENIES CHEST PAIN PRESSURE OR SOB. PATIENT TO BE EVALUATED BY SPEECH FOR INCREASED PLAN OF CARE. STILL INFUSING LR AT THIS TIME FULL BED BATH AT TIME OF BM, CONDOM CATH IN PLACE. LEFT SIDED WEAKNESS AND MINIMAL FACIAL DROOP STILL PRESENT.
[2023-08-20 07:25] VITALS: BP 126/70
--- NOTE | 2023-08-20 13:18 | NUR ---
Spiritual cre visit conducted. Patient is lying in bed and alert. He immediately asks me for chew or a cigarette, but once we establish that I was not going to be supplying those items he talks slowly but freely. He expresses his frustration about his his falls and loss of ability to be mobile. He voices his frustration about being in the hospital but is aware that he would struggle managing himself right now. He states that he is close to getting up and leaving which is mostly centered around his desire to smoke and chew. He shares that he does have family support and he welcomes prayer (which I gladly supply). Patient showed signs of, at least temporary, reduced stress and anxiousness to leave. I will continue to remain available to patient and family.
[2023-08-20 15:19] VITALS: BP 96/65
[2023-08-20 19:32] VITALS: BP 102/60
--- NOTE | 2023-08-20 20:00 | NUR ---
ASSUMPTION OF CARE AFTER RECEIVING REPORT FROM MAGGIE BATISTA, THIS RN ASSUMED CARE AT APPROX 1915. PATIENT SLEEPING DURING INITIAL ENCOUNTER, EASILY AROUSABLE TO VERBAL STIMULI. IMMEDIATELY REQUESTING TOBACCO PRODUCTS, SUCH CHEW. THIS RN PROVIDED EDUCATION REGARDING FACILITY TOBACCO FREE POLICY. IS ALERT AND ORIENTED X3. ABLE TO REORIENT TO CURRENT SITUATION. CAN BE IRRITABLE AT TIMES. IS MEDICAL STATUS WITHOUT TELEMETRY. BP SOFT, SBP 90's-100's. MAP >65. DENIES CHEST PAIN OR PRESSURE. IS ON ROOM AIR, SATS >92%. IS ABLE TO REPOSITION HIMSELF IN BED WITH 1P ASSIST. ATTEMPTED ONCE TO GET OUT OF BED TO TRY AND FIND TOBACCO PRODUCTS. BED ALARM IN PLACE. CONDOM CATH IN PLACE, DRAINING YELLOW URINE TO GRAVITY. CALL LIGHT IN REACH.
[2023-08-21 02:21] VITALS: BP 117/70
--- NOTE | 2023-08-21 05:15 | NUR ---
SHIFT SUMMARY NO ACUTE CHANGES SINCE ASSUMPTION OF CARE NOTE. PATIENT SLEPT INTERMITTENTLY THROUGHOUT SHIFT, EASILY AROUSABLE TO VERBAL STIMULI. FLAT AFFECT. COOPERATIVE WITH CARE. VS REMAIN STABLE. BP STABLE. REMAINS ON ROOM AIR, SATS >92%. CONDOM CATH PATENT, DRAINING YELLOW URINE TO GRAVITY. BM THIS SHIFT. ATTENDS IN PLACE, CHANGED PRN TO KEEP C/D/I. CALL LIGHT IN REACH. WILL REPORT TO ONCOMING RN.
[2023-08-21 07:12] VITALS: BP 107/64
--- NOTE | 2023-08-21 08:30 | NUR ---
UPDATE PT AWAKE AND ALERT. PT UNABLE TO STATE THE DATE, BUT KNOWS IT IS AUGUST AND JOSÉ MANUEL IS SOON. PT STATES HE IS IN THE HOSPITAL. BP STABLE. O2 SATS >90% ON RA. PT DENIES ANY PAIN, BUT STATES HE IS COLD. PT INCONTINENT OF URINE THIS AM AND BED BATH PROVIDED ALONG WITH NEW ATTENDS PLACED. PT TRANSFERRED TO RECLINER WITH 2 ASSIST AND GB. PT FED PUREE BREAKFAST IN THE RECLINER. PT'S COUGH UNCHANGED PRIOR TO EATING VS AFTER EATING. PT'S SISTER CALLED AND UPDATED THIS AM. WILL CONTINUE TO MONITOR CLOSELY
[2023-08-21 15:23] VITALS: BP 112/67
--- NOTE | 2023-08-21 16:23 | NUR ---
SHIFT SUMMARY PT REMAINS AWAKE AND ALERT. PT COOPERATIVE WITH CARE. VS STABLE. PT UP TO CHAIR FOR EVERY MEAL THIS SHIFT AND UP TO COMMODE TO HAVE BM. PT TOLERATING PUREE DIET. SISTER UPDATED THIS AFTERNOON. BED ALARM ON FOR SAFETY. WILL CONTINUE TO MONITOR AND REPORT OFF TO ONCOMING RN
[2023-08-21 19:37] VITALS: BP 117/71
--- NOTE | 2023-08-21 22:51 | NUR ---
ASSUMPTION OF CARE AFTER RECEIVING REPORT FROM MAGGIE RN, THIS RN ASSUMED CARE AT APPROX 1915. PATIENT ALERT, LYING IN BED WATCHING TV. IS ALERT AND ORIENTED X2-3. IS FORGETFUL, REQUIRING FREQUENT REORIENTATION. DOES NOT PULL AT LINES/CORDS. HAS NOT ATTEMPTED TO AMBULATE OOB. COOPERATIVE WITH CARE. VSS. BP STABLE. ON ROOM AIR, SATS >92%. INCONTINENT OF URINE/STOOL AT TIMES. ATTENDS IN PLACE. PER MAGGIE RN, PATIENT BEGAN TO VOICE NEED TO USE BEDSIDE COMMODE OR URINAL. CALL LIGHT IN REACH. BED ALARM IN PLACE.
[2023-08-22 02:03] VITALS: BP 123/80
[2023-08-22 03:35] LABS: BASOPHILS ABSOLUTE AUTO 0.01 K/mm3 (0.00-0.23); BASOPHILS PERCENT AUTO 0 % (0-2); EOSINOPHILS PERCENT AUTO 0 % (0-6); Hematocrit 34.7 % (37.0-53.0); Hemoglobin 11.9 g/dL (13.5-17.5); IMMATURE GRAN ABSOLUTE AUTO 0.05 K/mm3 (0.00-0.10); IMMATURE GRAN PERCENT AUTO 0 % (0-1); LYMPHOCYTES ABSOLUTE AUTO 0.31 K/mm3 (0.84-5.20); LYMPHOCYTES PERCENT AUTO 3 % (21-46); MONOCYTES ABSOLUTE AUTO 0.46 K/mm3 (0.16-1.47); MONOCYTES PERCENT AUTO 4 % (4-13); Mean Corpuscular HGB 33.8 pg (26.0-34.0); Mean Corpuscular HGB Conc 34.3 g/dL (31.5-36.5); Mean Corpuscular Volume 99 fL (80-100); Mean Platelet Volume 9.8 fL (9.1-12.4); NEUTROPHILS ABSOLUTE AUTO 10.72 K/mm3 (1.96-9.15); NEUTROPHILS PERCENT AUTO 93 % (41-73); Platelet Count 298 K/mm3 (150-400); RDW Coefficient Variation 13.7 % (11.7-14.2); RDW Standard Deviation 49.5 fL (35.1-46.3); Red Blood Cell Count 3.52 M/mm3 (4.30-5.90); White Blood Cell Count 11.55 K/mm3 (4.00-11.30)
[2023-08-22 03:51] LABS: Albumin, Blood 1.9 g/dL (3.4-5.0); Anion Gap 2 mmol/L (6-16); Blood Urea Nitrogen 12 mg/dL (8-24); Bun/Creatinine Ratio 24.1 (12.0-20.0); CO2, Blood 31 mmol/L (21-32); Calcium, Blood 7.6 mg/dL (8.5-10.1); Chloride, Blood 107 mmol/L (98-108); Glomerular Filtration Rate 112 (60-); Glucose, Blood 146 mg/dL (70-99); Phosphorus, Blood 3.3 mg/dL (2.5-4.9); Potassium, Blood 3.7 mmol/L (3.5-5.5); Sodium, Blood 140 mmol/L (136-145)
--- NOTE | 2023-08-22 05:16 | NUR ---
SHIFT SUMMARY NO ACUTE CHANGES SINCE PREVIOUS ASSUMPTION OF CARE NOTE. PATIENT SLEPT THROUGHOUT SHIFT, EASILY AROUSABLE TO VERBAL STIMULI. COOPERATIVE WITH CARE. VS REMAIN STABLE. REMAINS ON ROOM AIR, SATS >92%. CONDOM CATH PLACED DUE TO URINARY INCONTINENCE. IS PATENT. SMALL INCONTINENT BM THIS SHIFT. ATTENDS IN PLACE, CHANGED PRN TO KEEP C/D/I. CALL LIGHT IN REACH. BED ALARM ON. WILL REPORT TO ONCOMING RN.
[2023-08-22 08:50] VITALS: BP 115/71
--- NOTE | 2023-08-22 09:07 | NUR ---
Pt refused OOB for breakfast. Also refused breakfast, saying he wanted his chewing tobacco first. There is none, neither is it permissible on our campus. Sister Leonila was notifed of this this morning. Pt did say he needed to toilet, so was helped (2 staff assist) with gait belt to BS. Smear of soft brown stool passed. Pt again refused recliner chair. Assisted back to bed. Bed alarm on. He is on the phone, calmly talking with his sister Leonila.
[2023-08-22 17:03] VITALS: BP 117/95
--- NOTE | 2023-08-22 17:04 | NUR ---
Pt was mostly in bed today, sitting up for meals, repositioned with assistance. Did get up to the BSC twice with staff assisting, and once walked into the bathroom with the walker during a therapy session, where he also had a BM. He has shown no interest in sitting up in the chair/recliner during the day. Appetite good. Coarse productive cough noted occasionally during the day. Pt also has cough after eating. He has no c/o pain but did c/o feeling cold. His sister brought him a fleece jacket to keep warm. Vital signs are stable. Pwerglide dressing was changed per protocol, per weekly routine on Sunday.
[2023-08-22 19:38] VITALS: BP 112/75
--- NOTE | 2023-08-22 19:50 | NUR ---
ASSUMPTION OF CARE AFTER RECEIVING REPORT FROM NALLELY BATISTA, THIS RN ASSUMED CARE AT APPROX 1915. PATIENT ALERT, SITTING UP IN BED LISTENING TO TV. IS ALERT AND ORIENTED X1-2. ABLE TO REPORT HIS NAME, DATE OF , NAME OF FAMILY/FRIENDS, AND THAT HE IS IN THE HOSPITAL. WHEN ASKED WHERE THE [place] IS, [place] RE[place] WHEN ASKED WHY HE IS IN THE HOSPITAL, HE REPORTS "THAT IT IS BECAUSE I'M UNSTEADY." BED ALARM IN PLACE. COOPERATIVE WITH CARE. VSS. BP STABLE. ON ROOM AIR, SATS >92%. FREQUENT LOOSE COUGH NOTED. REFUSING ORAL CARE. CONDOM CATH PATENT FOR INCONTINENCE MANAGEMENT. PULL UP ATTENDS IN PLACE, IS C/D/I. CALL LIGHT IN REACH.
[2023-08-23 03:10] VITALS: BP 117/76
--- NOTE | 2023-08-23 05:20 | NUR ---
SHIFT SUMMARY NO ACUTE CHANGE SINCE PREVIOUS ASSUMPTION OF CARE NOTE. PATIENT SLEPT INTERMITTENTLY THROUGHOUT SHIFT, EASILY AROUSABLE TO VERBAL STIMULI. VS REMAIN STABLE. REMAINS ON ROOM AIR, SATS >92%. CONTINUED WET, PRODUCTIVE COUGH NOTED. UP TO BEDSIDE COMMODE WITH 2 PERSON ASSIST TO ATTEMPT TO PASS BM, SMALL SMEAR ONLY. CONDOM CATHETER PATENT, VOIDING YELLOW URINE. PULL UP ATTENDS IN PLACE, CHANGING NEEDED TO KEEP C/D/I. PATIENT ABLE TO REPOSITION HIMSELF WITH MINIMAL TO NO ASSIST IN BED. CALL LIGHT IN REACH. BED ALARM ON. WILL REPORT TO ONCOMING RN.
[2023-08-23 08:38] VITALS: BP 122/78
--- NOTE | 2023-08-23 15:48 | NUR ---
SHIFT SUMMARY/TRANSFER NOTE PT ALERT AND ORIENTED X 2, KEEPS SAYING [place], AND UNSURE OF WHAT MONTH AND YEAR IT IS. PERRLA. PT ON RA AND MAINTAINING 02 SATURATION ABOVE 92%, DENIES SOB. PT DENIES CHEST PAIN/PRESSURE. PT DENIED PAIN THROUGHOUT SHIFT. CONDOM CATH IN PLACE AND YELLOW URINE DRAINING WITH GRAVITY. PT UP TO CHAIR WITH 2 PERSON ASSIST. PT'S SISTER VISITED HIM AT BEDSIDE TODAY. PT TRANSFERRED TO MEDICAL FLOOR AT APPROXIMATELY 1548. HE TRANSFERRED WITH ALL OF HIS BELONGINGS AND CHART. REPORT WAS GIVEN TO HIS MEDICAL FLOOR NURSE. PT STABLE AT TIME OF TRANSFER.
--- NOTE | 2023-08-23 17:20 | NUR ---
ASSUMED CARE NOTE ASSUMED CARE OF PT AT APPROX 15:50. PT ARRIVED IN RECLINER W/ FAMILY AT BEDSIDE. PT A&OX2, CONFUSED AT TIMES BUT EASILY ORIENTABLE, HAS CONDOM CATH IN PLACE THAT IS PATENT, DENIES PAIN, AND IS A 2 PERSON ASSIST W/ A FWW AND GB PER REPORT. CHAIR ALARM ON. PT HAS DIFFICULTY SWALLOWING, IS ON ASPIRATION PRECAUTIONS, AND REQUIRES A FEEDER. CALL LIGHT WITHIN REACH AND PT ABLE TO MAKE NEEDS KNOWN.
[2023-08-23 20:51] VITALS: BP 115/91
[2023-08-24 05:25] VITALS: BP 133/81
[2023-08-24 05:46] LABS: BASOPHILS ABSOLUTE AUTO 0.01 K/mm3 (0.00-0.23); BASOPHILS PERCENT AUTO 0 % (0-2); EOSINOPHILS PERCENT AUTO 0 % (0-6); Hematocrit 35.7 % (37.0-53.0); IMMATURE GRAN ABSOLUTE AUTO 0.09 K/mm3 (0.00-0.10); IMMATURE GRAN PERCENT AUTO 1 % (0-1); LYMPHOCYTES ABSOLUTE AUTO 0.29 K/mm3 (0.84-5.20); LYMPHOCYTES PERCENT AUTO 2 % (21-46); MONOCYTES ABSOLUTE AUTO 0.69 K/mm3 (0.16-1.47); MONOCYTES PERCENT AUTO 5 % (4-13); Mean Corpuscular HGB 33.3 pg (26.0-34.0); Mean Corpuscular HGB Conc 33.6 g/dL (31.5-36.5); Mean Corpuscular Volume 99 fL (80-100); Mean Platelet Volume 9.8 fL (9.1-12.4); NEUTROPHILS ABSOLUTE AUTO 12.29 K/mm3 (1.96-9.15); NEUTROPHILS PERCENT AUTO 92 % (41-73); Platelet Count 237 K/mm3 (150-400); RDW Coefficient Variation 13.6 % (11.7-14.2); RDW Standard Deviation 49.5 fL (35.1-46.3); White Blood Cell Count 13.37 K/mm3 (4.00-11.30)
[2023-08-24 06:01] LABS: Albumin, Blood 1.9 g/dL (3.4-5.0); Anion Gap 4 mmol/L (6-16); Blood Urea Nitrogen 12 mg/dL (8-24); Bun/Creatinine Ratio 23.5 (12.0-20.0); CO2, Blood 29 mmol/L (21-32); Calcium, Blood 6.9 mg/dL (8.5-10.1); Chloride, Blood 108 mmol/L (98-108); Creatinine, Blood 0.51 mg/dL (0.60-1.20); Glomerular Filtration Rate 112 (60-); Glucose, Blood 118 mg/dL (70-99); Phosphorus, Blood 2.9 mg/dL (2.5-4.9); Potassium, Blood 3.4 mmol/L (3.5-5.5); Sodium, Blood 141 mmol/L (136-145)
--- NOTE | 2023-08-24 06:23 | NUR ---
SHIFT SUMMARY REPORT FROM DAY SHIFT RN- PT LAYING IN BED, CONDOM CATH IN PLACE, PT REPORTED GETTING UP TO THE RESTROOM ON OWN TO HAVE BM- BM FOUND ON TOILET, PT INCONTIENT OF BM - CLEANED UP AND CHANGED PT, INCREASED THE SOUND OF BED ALARM AND REMINDED PT TO CALL FOR ASSISTANCE, REPLACED CONDOM CATH IN THE NIGHT, PT REMOVED ON ACCIDENT- BED LOW POSITION, CALL LIGHT WITHIN REACH
[2023-08-24 07:53] VITALS: BP 127/71
[2023-08-24 16:50] VITALS: BP 111/69
--- NOTE | 2023-08-24 17:42 | NUR ---
DAYSHIFT SUMMARY Patient alert & oriented x1-2, impulsive at times. IV potassium infused this morning, PO Prednisone administred. Vitals stable. Patient incontinent B/B. Bed alarm activated & audible. Will continue plan of care.
[2023-08-24 19:55] VITALS: BP 118/73
[2023-08-24 21:50] VITALS: BP 133/86
[2023-08-24 22:08] VITALS: BP 133/86
[2023-08-25 05:24] VITALS: BP 141/79
[2023-08-25 06:05] LABS: BASOPHILS ABSOLUTE AUTO 0.03 K/mm3 (0.00-0.23); BASOPHILS PERCENT AUTO 0 % (0-2); EOSINOPHILS PERCENT AUTO 0 % (0-6); Hematocrit 41.9 % (37.0-53.0); Hemoglobin 14.5 g/dL (13.5-17.5); IMMATURE GRAN ABSOLUTE AUTO 0.11 K/mm3 (0.00-0.10); IMMATURE GRAN PERCENT AUTO 1 % (0-1); LYMPHOCYTES ABSOLUTE AUTO 0.52 K/mm3 (0.84-5.20); LYMPHOCYTES PERCENT AUTO 3 % (21-46); MONOCYTES ABSOLUTE AUTO 1.69 K/mm3 (0.16-1.47); MONOCYTES PERCENT AUTO 10 % (4-13); Mean Corpuscular HGB 33.8 pg (26.0-34.0); Mean Corpuscular HGB Conc 34.6 g/dL (31.5-36.5); Mean Corpuscular Volume 98 fL (80-100); NEUTROPHILS ABSOLUTE AUTO 15.08 K/mm3 (1.96-9.15); NEUTROPHILS PERCENT AUTO 87 % (41-73); Platelet Count 242 K/mm3 (150-400); RDW Coefficient Variation 13.7 % (11.7-14.2); RDW Standard Deviation 49.1 fL (35.1-46.3); Red Blood Cell Count 4.29 M/mm3 (4.30-5.90); White Blood Cell Count 17.43 K/mm3 (4.00-11.30)
[2023-08-25 06:44] LABS: Albumin, Blood 2.3 g/dL (3.4-5.0); Anion Gap 3 mmol/L (6-16); Blood Urea Nitrogen 12 mg/dL (8-24); Bun/Creatinine Ratio 21.4 (12.0-20.0); CO2, Blood 32 mmol/L (21-32); Calcium, Blood 8.1 mg/dL (8.5-10.1); Chloride, Blood 101 mmol/L (98-108); Creatinine, Blood 0.56 mg/dL (0.60-1.20); Glomerular Filtration Rate 109 (60-); Glucose, Blood 92 mg/dL (70-99); Phosphorus, Blood 2.4 mg/dL (2.5-4.9); Potassium, Blood 3.9 mmol/L (3.5-5.5); Sodium, Blood 136 mmol/L (136-145)
--- NOTE | 2023-08-25 06:44 | NUR ---
SHIFT SUMMARY PT LAYING IN BED DURING BEDSIDE ROUNDS, SAFETY MEASURES IN PLACE-2150 PT FOUND SITTING ON FLOOR NEXT TO BED - PT WAS PUSHING THE BUTTONS ON THE BED MAKING IT GO UP AND DOWN- PT DENIED BEING INJURED- PT BASELINE CONFUSED- NO S/S WOUNDS OR INJURIES, VSS, ASSISTED PT WITH SIN SOLIZ RN TO BED, EVANGELIST MICHAEL RN CALLED TO ASSIST- CHANGED PT'S BRIEF AND CHANGED THE BED ALARM TO INCREASE SENSITIVITY- CALL LIGHT WITHIN REACH, BED LOW POSITION, BED ALARM IN PLACE
[2023-08-25 07:49] VITALS: BP 124/77
[2023-08-25 16:41] VITALS: BP 123/77
--- NOTE | 2023-08-25 16:51 | NUR ---
DAYSHIFT SUMMARY Patient alert & oriented x2, cooperative and pleasant today, less impulisve follows redirection. Started PO Decadron today. Vitals stable. Awaiting discharge planning. Will continue plan of care.
[2023-08-25 20:14] VITALS: BP 113/76
[2023-08-26 02:12] VITALS: BP 144/84
--- NOTE | 2023-08-26 02:55 | NUR ---
SHIFT SUMMARY PT RESTING QUIETLY DURING SHIFT REPORT. PT WOKE EASILY FOR CARE, BUT GOING RIGHT BACK TO SLEEP WHEN FINISHED. PT CO-OP WITH CARE TO PRESENT. ABLE TO TAKE MEDS WHOLE WITH WATER W/O DIFFICULTY. NO C/O, DENIED FURTHER NEEDS. PER REPORT, PT WAITING FOR PLACEMENT. BED ALARM ON FOR SAFETY. CALL LT IN REACH.
[2023-08-26 07:51] VITALS: BP 114/74
[2023-08-26 15:58] VITALS: BP 115/84
--- NOTE | 2023-08-26 16:29 | NUR ---
SHIFT SUMMARY PATIENT IS ALERT BUT CONFUSED. PATIENT HAS HAD NO ACUTE EVENTS THIS SHIFT. VITAL SIGNS REFUSED. PATIENT HAS BEEN SLEEPING OF AND ON THIS SHIFT. ATE WELL TODAY. PATIENT HAS NOT COMPLAINED OF PAIN, NAUSEA, SOB OR VOMITTING THIS SHIFT. BED IN LOCKED AND LOWEST POSITION. CALL LIGHT IN PLACE. WILL MONITOR UNTIL SHIFT CHANGE.
[2023-08-26 20:17] VITALS: BP 103/73
[2023-08-27 01:40] VITALS: BP 101/66
--- NOTE | 2023-08-27 02:23 | NUR ---
SHIFT SUMMARY NO ACUTE CHANGES TO PRESENT THIS SHIFT. PT AWAKE DURING SHIFT REPORT. SLEEPS MOST OF SHIFT, BUT DOES WAKE EASILY FOR CARE. PLEASANT AND CO-OP, NO C/O. CHANGED NEEDED FOR INCONTINENCE. MEDICALLY STABE, WAITING PLACEMENT. CALL LT IN REACH.
[2023-08-27 05:03] LABS: BASOPHILS ABSOLUTE AUTO 0.03 K/mm3 (0.00-0.23); BASOPHILS PERCENT AUTO 0 % (0-2); EOSINOPHILS ABSOLUTE AUTO 0.04 K/mm3 (0.00-0.68); EOSINOPHILS PERCENT AUTO 0 % (0-6); Hematocrit 38.7 % (37.0-53.0); Hemoglobin 13.6 g/dL (13.5-17.5); IMMATURE GRAN ABSOLUTE AUTO 0.14 K/mm3 (0.00-0.10); IMMATURE GRAN PERCENT AUTO 1 % (0-1); LYMPHOCYTES ABSOLUTE AUTO 1.24 K/mm3 (0.84-5.20); LYMPHOCYTES PERCENT AUTO 7 % (21-46); MONOCYTES ABSOLUTE AUTO 2.36 K/mm3 (0.16-1.47); MONOCYTES PERCENT AUTO 12 % (4-13); Mean Corpuscular HGB 33.7 pg (26.0-34.0); Mean Corpuscular HGB Conc 35.1 g/dL (31.5-36.5); Mean Corpuscular Volume 96 fL (80-100); Mean Platelet Volume 10.4 fL (9.1-12.4); NEUTROPHILS ABSOLUTE AUTO 15.18 K/mm3 (1.96-9.15); NEUTROPHILS PERCENT AUTO 80 % (41-73); Platelet Count 204 K/mm3 (150-400); RDW Coefficient Variation 13.6 % (11.7-14.2); Red Blood Cell Count 4.04 M/mm3 (4.30-5.90); White Blood Cell Count 18.99 K/mm3 (4.00-11.30)
[2023-08-27 05:32] LABS: Albumin, Blood 2.1 g/dL (3.4-5.0); Anion Gap 3 mmol/L (6-16); Blood Urea Nitrogen 16 mg/dL (8-24); Bun/Creatinine Ratio 27.4 (12.0-20.0); CO2, Blood 33 mmol/L (21-32); Calcium, Blood 7.8 mg/dL (8.5-10.1); Chloride, Blood 99 mmol/L (98-108); Creatinine, Blood 0.58 mg/dL (0.60-1.20); Glomerular Filtration Rate 108 (60-); Glucose, Blood 92 mg/dL (70-99); Phosphorus, Blood 2.8 mg/dL (2.5-4.9); Potassium, Blood 3.8 mmol/L (3.5-5.5); Sodium, Blood 135 mmol/L (136-145)
[2023-08-27 07:20] VITALS: BP 105/69
[2023-08-27 15:51] VITALS: BP 92/67
--- NOTE | 2023-08-27 16:12 | NUR ---
DAYSHIFT SUMMARY Patient alert & oriented x1-2. Incontinent of bowel/bladder, cooperative with cares. Occasional nonproductive cough. Vitals stable. Awaiting discharge planning.
[2023-08-27 20:06] VITALS: BP 116/75
[2023-08-28 04:41] VITALS: BP 105/70
[2023-08-28 05:07] LABS: BASOPHILS ABSOLUTE AUTO 0.03 K/mm3 (0.00-0.23); BASOPHILS PERCENT AUTO 0 % (0-2); EOSINOPHILS ABSOLUTE AUTO 0.05 K/mm3 (0.00-0.68); EOSINOPHILS PERCENT AUTO 0 % (0-6); Hematocrit 37.8 % (37.0-53.0); Hemoglobin 13.1 g/dL (13.5-17.5); IMMATURE GRAN ABSOLUTE AUTO 0.18 K/mm3 (0.00-0.10); IMMATURE GRAN PERCENT AUTO 1 % (0-1); LYMPHOCYTES ABSOLUTE AUTO 1.17 K/mm3 (0.84-5.20); LYMPHOCYTES PERCENT AUTO 7 % (21-46); MONOCYTES ABSOLUTE AUTO 1.94 K/mm3 (0.16-1.47); MONOCYTES PERCENT AUTO 12 % (4-13); Mean Corpuscular HGB 33.5 pg (26.0-34.0); Mean Corpuscular HGB Conc 34.7 g/dL (31.5-36.5); Mean Corpuscular Volume 97 fL (80-100); NEUTROPHILS PERCENT AUTO 79 % (41-73); RDW Coefficient Variation 13.8 % (11.7-14.2); RDW Standard Deviation 48.4 fL (35.1-46.3); Red Blood Cell Count 3.91 M/mm3 (4.30-5.90); White Blood Cell Count 16.07 K/mm3 (4.00-11.30)
--- NOTE | 2023-08-28 05:08 | NUR ---
SHIFT SUMMARY NOC PT A/O X 3. PT PLEASANT AND COOPERATIVE WITH CARE. IMPULSIVE AND PT HAS GOTTEN OOB MULTIPLE TIMES SETTING OFF BED ALARM. NO ACUTE CHANGES TO REPORT. 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 PT HAS PG IN [place] THAT DRAWS. PT SISTER IS GUARDIAN/POA. DISCHARGE PLANNING IS SEEKING [facility].PT IS CURRENTLY RESTING WITH BED ALARM ON, BED IN LOWEST POSITION, AND CALL LIGHT WITHIN REACH.
[2023-08-28 05:22] LABS: Mean Platelet Volume 10.6 fL (9.1-12.4); Platelet Count 209 K/mm3 (150-400)
[2023-08-28 05:24] LABS: Bun/Creatinine Ratio 23.6 (12.0-20.0); Calcium, Blood 7.7 mg/dL (8.5-10.1); Creatinine, Blood 0.51 mg/dL (0.60-1.20); Potassium, Blood 3.9 mmol/L (3.5-5.5)
[2023-08-28 07:19] VITALS: BP 118/84
[2023-08-28 14:59] VITALS: BP 94/67
--- NOTE | 2023-08-28 18:08 | NUR ---
SHIFT SUMMARY; NECESSITY FOR 1 TO 1 SITTER TODAY PATIENT HAS MUCH DIFFICULTY FOLLOWING DIRECTIONS AND IS NOTED TO CLIMB OVER RAILING IN BED. HE IS UNSTEADY ON HIS FEET AND IS UP REPEATEDLY MULTIPLE TIMES IN AN HOUR. HE IS NOT REDIRECTABLE AND DOES INSIST ON GOING INTO THE BATHROOM WHERE HE IS UNABLE TO URINATE. HE DOES SIT FOR SHORT PERIODS OF TIME THEN JUMPS UP AND WANTS TO GO BACK TO BED. SPEECH THERAPY DID WORK WITH PATIENT TODAY AND HE DID HAVE SOME DIFFICULTY SWALLOWING SO BARIUM SWALLOW IS ORDERED FOR THE AM TOMORROW. WILL [id number] TO MONITOR THIS PATIENT CLOSELY UNTIL REPORT AT SHIFT CHANGE.
[2023-08-28 19:34] VITALS: BP 95/72
--- NOTE | 2023-08-29 05:15 | NUR ---
SHIFT SUMMARY. PATIENT ALERT TO SELF. PATIENT HAS 1:1 SITTER. PATIENT SLEPT WELL TONIGHT. PATIENT IRRITABLE AT TIMES OF CARE. PATIENT URINATED IN BED FOLLOWING BEING OFFERED ASSISTANCE TO THE RESTROOM. PATIENT CHANGED, CONDOM CATHETER APPLIED TO PREVENT UNCONTINCE AND MOISTURE TO NICOLAS AREA. PATIENT TOLERATED CONDOM CATH. PATIENT CALLED OUT "FUCK" SEVERAL TIMES DURING CARE-ROLLING THE PATIENT IN BED. 1:[address], BED EXIT ALARM ENGAGED.
[2023-08-29 06:23] VITALS: BP 110/72
[2023-08-29 06:52] LABS: BASOPHILS ABSOLUTE AUTO 0.02 K/mm3 (0.00-0.23); BASOPHILS PERCENT AUTO 0 % (0-2); EOSINOPHILS ABSOLUTE AUTO 0.02 K/mm3 (0.00-0.68); EOSINOPHILS PERCENT AUTO 0 % (0-6); Hemoglobin 13.8 g/dL (13.5-17.5); IMMATURE GRAN ABSOLUTE AUTO 0.14 K/mm3 (0.00-0.10); IMMATURE GRAN PERCENT AUTO 1 % (0-1); LYMPHOCYTES ABSOLUTE AUTO 1.98 K/mm3 (0.84-5.20); LYMPHOCYTES PERCENT AUTO 13 % (21-46); MONOCYTES ABSOLUTE AUTO 1.72 K/mm3 (0.16-1.47); MONOCYTES PERCENT AUTO 11 % (4-13); Mean Corpuscular HGB 33.4 pg (26.0-34.0); Mean Corpuscular HGB Conc 34.5 g/dL (31.5-36.5); Mean Corpuscular Volume 97 fL (80-100); Mean Platelet Volume 9.9 fL (9.1-12.4); NEUTROPHILS ABSOLUTE AUTO 11.16 K/mm3 (1.96-9.15); NEUTROPHILS PERCENT AUTO 74 % (41-73); Platelet Count 301 K/mm3 (150-400); RDW Coefficient Variation 13.8 % (11.7-14.2); RDW Standard Deviation 49.1 fL (35.1-46.3); Red Blood Cell Count 4.13 M/mm3 (4.30-5.90); White Blood Cell Count 15.04 K/mm3 (4.00-11.30)
[2023-08-29 07:01] LABS: Bun/Creatinine Ratio 31.7 (12.0-20.0); Calcium, Blood 7.9 mg/dL (8.5-10.1); Creatinine, Blood 0.44 mg/dL (0.60-1.20); Potassium, Blood 5.2 mmol/L (3.5-5.5)
[2023-08-29 07:26] VITALS: BP 107/68
--- NOTE | 2023-08-29 15:17 | NUR ---
NOTE PT RESTING QUIETLY IN BED. EYES OPEN. VISITING A LITTLE WITH THE ACCOUNTING OFFICE MANAGER. VSS. RA. POWER GLIDE INTACT. HE HAS LEFT THE CONDOM CATHETER ON. VOIDING CLEAR, YELLOW URINE. ASKED FRO MAGALYS LUTZ FOR AN AFTERNOON SNACK. CARE ONGOING.
[2023-08-29 15:25] VITALS: BP 110/96
[2023-08-29 19:53] VITALS: BP 93/69
--- NOTE | 2023-08-30 05:03 | NUR ---
SHIFT SUMMARY. NO ACUTE CHANGES NOTED. PATIENT HAS BEEN AWAKE OFF AND ON T/O SHIFT. PATIENT HAS BEEN PLEASANT AND COOPERATIVE WITH CARE. PATIENT ASKED FOR EVENING/BRUSHER WARP SNACK-GRAHM CRACKER/YOGURT PROVIDED TO PATIENT. BED IS LOCKED IN LOWEST POSITION WITH CALL LIGHT IN REACH. CELL ATTENDANT HELPER IS IN PLACE.
[2023-08-30 05:33] VITALS: BP 107/74
[2023-08-30 06:16] LABS: BASOPHILS ABSOLUTE AUTO 0.04 K/mm3 (0.00-0.23); BASOPHILS PERCENT AUTO 0 % (0-2); EOSINOPHILS ABSOLUTE AUTO 0.03 K/mm3 (0.00-0.68); EOSINOPHILS PERCENT AUTO 0 % (0-6); Hematocrit 38.8 % (37.0-53.0); Hemoglobin 13.6 g/dL (13.5-17.5); IMMATURE GRAN ABSOLUTE AUTO 0.16 K/mm3 (0.00-0.10); IMMATURE GRAN PERCENT AUTO 1 % (0-1); LYMPHOCYTES ABSOLUTE AUTO 2.25 K/mm3 (0.84-5.20); LYMPHOCYTES PERCENT AUTO 16 % (21-46); MONOCYTES ABSOLUTE AUTO 1.68 K/mm3 (0.16-1.47); MONOCYTES PERCENT AUTO 12 % (4-13); Mean Corpuscular HGB 33.7 pg (26.0-34.0); Mean Corpuscular HGB Conc 35.1 g/dL (31.5-36.5); Mean Corpuscular Volume 96 fL (80-100); Mean Platelet Volume 9.5 fL (9.1-12.4); NEUTROPHILS ABSOLUTE AUTO 10.08 K/mm3 (1.96-9.15); NEUTROPHILS PERCENT AUTO 71 % (41-73); Platelet Count 338 K/mm3 (150-400); RDW Coefficient Variation 14.1 % (11.7-14.2); RDW Standard Deviation 49.6 fL (35.1-46.3); Red Blood Cell Count 4.03 M/mm3 (4.30-5.90); White Blood Cell Count 14.24 K/mm3 (4.00-11.30)
[2023-08-30 06:29] LABS: Albumin, Blood 2.2 g/dL (3.4-5.0); Anion Gap 5 mmol/L (6-16); Blood Urea Nitrogen 13 mg/dL (8-24); CO2, Blood 28 mmol/L (21-32); Calcium, Blood 7.9 mg/dL (8.5-10.1); Chloride, Blood 102 mmol/L (98-108); Creatinine, Blood 0.54 mg/dL (0.60-1.20); Glomerular Filtration Rate 110 (60-); Glucose, Blood 85 mg/dL (70-99); Phosphorus, Blood 2.9 mg/dL (2.5-4.9); Potassium, Blood 3.8 mmol/L (3.5-5.5); Sodium, Blood 135 mmol/L (136-145)
[2023-08-30 07:44] VITALS: BP 111/73
[2023-08-30 17:06] VITALS: BP 99/77
[2023-08-30 19:57] VITALS: BP 98/68
[2023-08-31 03:39] VITALS: BP 104/75
--- NOTE | 2023-08-31 04:28 | NUR ---
PATIENT C/O ABDOMINAL PAIN/DISCOMFORT. BOWEL TONES ACTIVE IN ALL FOUR QUADRANTS UPON AUSULTATION. LOWER ABDOMINAL PAIN WITH PALPATION. HOSPITALIST CONTACTED-ABDOMINAL XRAY ORDERED PER DOCTOR HUMPHRIES. PATIENT PAIN ASSESSED AND MEDICATED PER EMAR.
--- NOTE | 2023-08-31 04:45 | NUR ---
SHIFT SUMMARY. PATIENT AOX3. PATIENT IS PLEASANT AND COOPERATIVE WITH CARE. PATIENT ABLE TO MAKE NEEDS KNOWN. PATIENT C/O ABDOMINA PAIN/DISCOMFORT-SEE PREVIOUS NOTE. PATIENT HAS TOOL TROUBLE SHOOTER IN PLACE. [place] POWERGLIDE BANDAGE CHANGED 08/30/29. PATIENT REPOSITIONED WHEN ASSISTANCE IS NEEDED. PATIENT PROVIDED WITH SNACKS PER PATIENT REQUESTS. BED IS LOCKED IN THE LOWEST POSITION WITH CALL LIGHT IN REACH. NO S/S OF DISTRESS NOTED AT THIS TIME.
[2023-08-31 06:31] LABS: BASOPHILS ABSOLUTE AUTO 0.04 K/mm3 (0.00-0.23); BASOPHILS PERCENT AUTO 0 % (0-2); EOSINOPHILS ABSOLUTE AUTO 0.04 K/mm3 (0.00-0.68); EOSINOPHILS PERCENT AUTO 0 % (0-6); Hemoglobin 12.9 g/dL (13.5-17.5); IMMATURE GRAN ABSOLUTE AUTO 0.14 K/mm3 (0.00-0.10); IMMATURE GRAN PERCENT AUTO 1 % (0-1); LYMPHOCYTES ABSOLUTE AUTO 2.39 K/mm3 (0.84-5.20); LYMPHOCYTES PERCENT AUTO 15 % (21-46); MONOCYTES ABSOLUTE AUTO 1.59 K/mm3 (0.16-1.47); MONOCYTES PERCENT AUTO 10 % (4-13); Mean Corpuscular HGB 33.2 pg (26.0-34.0); Mean Corpuscular HGB Conc 34.9 g/dL (31.5-36.5); Mean Corpuscular Volume 95 fL (80-100); Mean Platelet Volume 9.2 fL (9.1-12.4); NEUTROPHILS ABSOLUTE AUTO 11.82 K/mm3 (1.96-9.15); NEUTROPHILS PERCENT AUTO 74 % (41-73); Platelet Count 373 K/mm3 (150-400); RDW Coefficient Variation 13.9 % (11.7-14.2); RDW Standard Deviation 48.8 fL (35.1-46.3); Red Blood Cell Count 3.88 M/mm3 (4.30-5.90); White Blood Cell Count 16.02 K/mm3 (4.00-11.30)
[2023-08-31 06:58] LABS: Bun/Creatinine Ratio 27.5 (12.0-20.0); Calcium, Blood 8.2 mg/dL (8.5-10.1); Creatinine, Blood 0.47 mg/dL (0.60-1.20); Potassium, Blood 3.6 mmol/L (3.5-5.5)
[2023-08-31 07:28] VITALS: BP 107/76
[2023-08-31 16:01] VITALS: BP 110/75
--- NOTE | 2023-08-31 16:47 | NUR ---
SHIFT SUMMARY PATIENT ALERT AND INTERACTIVE. PATIENT ABLE TO AMBULATE WITH WALKER AND STAND BY ASSIST TO BR. PATIENT NOT WANTING TO WALK IN ANTHONY AND NOT WANTING TO SIT UP IN CHAIR FOR ANY LENGTH OF TIME. PATIENT HAVING FREQUENT SOFT BOWEL MOVEMENTS. PATIENT AWARE THAT HE MAY TRANSITION TO [employer] [place]. SISTER REPORTS THAT HIS SISTER IS IN [place]. PATIENT NEEDING ASSISTANCE WITH MEALS BECAUSE OF LIMITED SIGHT.
[2023-08-31 20:03] VITALS: BP 113/76
--- NOTE | 2023-08-31 23:41 | NUR ---
REPORT RECEIVED VERIFIED PT A/O X2 PLEASENT AND COOPERATIVE BUT VERY IMPULESIVE, FREQUESNCY IN URINATION NOTED PT FEELING AN URGENCY TO GO TO BARTHROOM, ASSISTED SEVERAL TIMES TO BATH ROOM AFTER PT JUMPED OUT OF BED TO USE BATHROOM. CONDOM CATH REPLACED WILL ATTEMPT TO HELP PT UNDERSTAND AND USE.
[2023-09-01 03:35] VITALS: BP 107/74
--- NOTE | 2023-09-01 04:19 | NUR ---
PT DID VERY WELL WITH THE CONDOM CATH AND WAS ABLE TO GET A LITTLE SLEEP, HASNT ATTEMPTED TO GET OUT OF BED SINCE CATH WAS PLACED STATES HIS PAIN IS MUCH BETTER AND HAS NO COMPLAINTS OR DISTRESS.
[2023-09-01 06:18] LABS: BASOPHILS ABSOLUTE AUTO 0.05 K/mm3 (0.00-0.23); BASOPHILS PERCENT AUTO 0 % (0-2); EOSINOPHILS ABSOLUTE AUTO 0.07 K/mm3 (0.00-0.68); EOSINOPHILS PERCENT AUTO 1 % (0-6); Hemoglobin 12.7 g/dL (13.5-17.5); IMMATURE GRAN ABSOLUTE AUTO 0.16 K/mm3 (0.00-0.10); IMMATURE GRAN PERCENT AUTO 1 % (0-1); LYMPHOCYTES ABSOLUTE AUTO 1.68 K/mm3 (0.84-5.20); LYMPHOCYTES PERCENT AUTO 11 % (21-46); MONOCYTES ABSOLUTE AUTO 1.24 K/mm3 (0.16-1.47); MONOCYTES PERCENT AUTO 8 % (4-13); Mean Corpuscular HGB 33.4 pg (26.0-34.0); Mean Corpuscular HGB Conc 34.3 g/dL (31.5-36.5); Mean Corpuscular Volume 97 fL (80-100); Mean Platelet Volume 9.5 fL (9.1-12.4); NEUTROPHILS ABSOLUTE AUTO 11.52 K/mm3 (1.96-9.15); NEUTROPHILS PERCENT AUTO 78 % (41-73); Platelet Count 366 K/mm3 (150-400); RDW Coefficient Variation 14.2 % (11.7-14.2); RDW Standard Deviation 50.6 fL (35.1-46.3); White Blood Cell Count 14.72 K/mm3 (4.00-11.30)
[2023-09-01 06:52] LABS: Albumin, Blood 2.2 g/dL (3.4-5.0); Anion Gap 4 mmol/L (6-16); Blood Urea Nitrogen 11 mg/dL (8-24); CO2, Blood 30 mmol/L (21-32); Calcium, Blood 7.9 mg/dL (8.5-10.1); Chloride, Blood 104 mmol/L (98-108); Creatinine, Blood 0.55 mg/dL (0.60-1.20); Glomerular Filtration Rate 109 (60-); Glucose, Blood 81 mg/dL (70-99); Phosphorus, Blood 3.4 mg/dL (2.5-4.9); Potassium, Blood 3.7 mmol/L (3.5-5.5); Sodium, Blood 138 mmol/L (136-145)
[2023-09-01 07:29] VITALS: BP 108/73
[2023-09-01 16:17] VITALS: BP 113/73
--- NOTE | 2023-09-01 17:32 | NUR ---
SHIFT SUMMARY PATIENT CONTINUES TO BE CONFUSED BUT COOPERATIVE WITH CARE. PATIENT CONTINUES TO BE WITHOUT A SITTER FOR SECOND DAY. PATIENT NEEDING ASSISTANCE WITH EATING BECAUSE OF VISUAL ISSUES. PATIENT AMBULATED IN THE ANTHONY WITH WALKER AND ONE PERSON ASSIST X1 TODAY. PATIENT CONTINUES TO REPORT ABDOMINAL PAIN AFTER INITIATING EATING. PATIENT CONTINUES TO WEAR CONDOM CATHETER FOR INCONTINENCE AND ATTENDS.
[2023-09-01 20:01] VITALS: BP 114/78
--- NOTE | 2023-09-02 03:46 | NUR ---
PATIENT IS ALERT AND ORIENTED WITH CONDOM CATH PLACED, NOTED THE NICOTINE PATCH ON HIS RIGHT DELTOID AREA, WITH PIV LINE PATENT AND INTACT. CONDOM CATH WAS REPLACED DUE TO DISLODGEMENT. NO COMPLAINTS OF PAIN NOR DIFFICULTY OF BREATHING. NEED ATTENDED. CALL LIGHT WITHIN REACH.
[2023-09-02 05:09] VITALS: BP 107/81
[2023-09-02 06:44] LABS: BASOPHILS ABSOLUTE AUTO 0.03 K/mm3 (0.00-0.23); BASOPHILS PERCENT AUTO 0 % (0-2); EOSINOPHILS ABSOLUTE AUTO 0.07 K/mm3 (0.00-0.68); EOSINOPHILS PERCENT AUTO 1 % (0-6); Hematocrit 37.2 % (37.0-53.0); Hemoglobin 12.7 g/dL (13.5-17.5); IMMATURE GRAN ABSOLUTE AUTO 0.15 K/mm3 (0.00-0.10); IMMATURE GRAN PERCENT AUTO 1 % (0-1); LYMPHOCYTES ABSOLUTE AUTO 1.36 K/mm3 (0.84-5.20); LYMPHOCYTES PERCENT AUTO 10 % (21-46); MONOCYTES ABSOLUTE AUTO 1.16 K/mm3 (0.16-1.47); MONOCYTES PERCENT AUTO 8 % (4-13); Mean Corpuscular HGB 33.2 pg (26.0-34.0); Mean Corpuscular HGB Conc 34.1 g/dL (31.5-36.5); Mean Corpuscular Volume 97 fL (80-100); Mean Platelet Volume 9.1 fL (9.1-12.4); NEUTROPHILS ABSOLUTE AUTO 11.59 K/mm3 (1.96-9.15); NEUTROPHILS PERCENT AUTO 81 % (41-73); Platelet Count 368 K/mm3 (150-400); RDW Coefficient Variation 14.3 % (11.7-14.2); RDW Standard Deviation 50.8 fL (35.1-46.3); Red Blood Cell Count 3.83 M/mm3 (4.30-5.90); White Blood Cell Count 14.36 K/mm3 (4.00-11.30)
[2023-09-02 07:14] LABS: Bun/Creatinine Ratio 19.6 (12.0-20.0); Calcium, Blood 8.2 mg/dL (8.5-10.1); Creatinine, Blood 0.56 mg/dL (0.60-1.20); Potassium, Blood 4.3 mmol/L (3.5-5.5)
[2023-09-02 07:31] VITALS: BP 114/80
[2023-09-02 15:54] VITALS: BP 110/78
--- NOTE | 2023-09-02 17:32 | NUR ---
SHIFT SUMMARY PATIENT OOB X1 TODAY. PATIENT CONTINUES TO BE HUNGRY BUT HAVING ABD PAIN AT TIMES AFTER EATING A FEW BITES OF FOOD. PAIN AND DISCOMFORT DECREASED TODAY. PATIENT HAS HAD MULTIPLE BMS. STOOL SAMPLE SENT. PATIENT HAS LIMITED VISION AND NEEDS ASSISTANCE WITH EATING AND AMBULATING BECAUSE OF VISION ISSUES. PATIENT CONTINUES TO HAVE MOIST PRODUCTIVE COUGH. PATIENT STATES THAT THIS IS HIS NORMAL COUGH. PATIENT COOPERATIVE WITH CARE BUT PREFERS TO STAY IN BED.
[2023-09-02 22:15] VITALS: BP 108/81
[2023-09-03 04:15] VITALS: BP 106/74
[2023-09-03 05:40] LABS: BASOPHILS ABSOLUTE AUTO 0.04 K/mm3 (0.00-0.23); BASOPHILS PERCENT AUTO 0 % (0-2); EOSINOPHILS ABSOLUTE AUTO 0.07 K/mm3 (0.00-0.68); EOSINOPHILS PERCENT AUTO 1 % (0-6); Hematocrit 36.2 % (37.0-53.0); Hemoglobin 12.5 g/dL (13.5-17.5); IMMATURE GRAN ABSOLUTE AUTO 0.14 K/mm3 (0.00-0.10); IMMATURE GRAN PERCENT AUTO 1 % (0-1); LYMPHOCYTES ABSOLUTE AUTO 1.58 K/mm3 (0.84-5.20); LYMPHOCYTES PERCENT AUTO 12 % (21-46); MONOCYTES ABSOLUTE AUTO 1.12 K/mm3 (0.16-1.47); MONOCYTES PERCENT AUTO 9 % (4-13); Mean Corpuscular HGB 33.7 pg (26.0-34.0); Mean Corpuscular HGB Conc 34.5 g/dL (31.5-36.5); Mean Corpuscular Volume 98 fL (80-100); Mean Platelet Volume 9.1 fL (9.1-12.4); NEUTROPHILS PERCENT AUTO 77 % (41-73); Platelet Count 355 K/mm3 (150-400); RDW Coefficient Variation 14.4 % (11.7-14.2); Red Blood Cell Count 3.71 M/mm3 (4.30-5.90); White Blood Cell Count 13.05 K/mm3 (4.00-11.30)
[2023-09-03 06:01] LABS: Bun/Creatinine Ratio 30.9 (12.0-20.0); Calcium, Blood 8.1 mg/dL (8.5-10.1); Creatinine, Blood 0.55 mg/dL (0.60-1.20); Potassium, Blood 4.1 mmol/L (3.5-5.5)
[2023-09-03 07:42] VITALS: BP 102/68
[2023-09-03 14:47] VITALS: BP 116/84
--- NOTE | 2023-09-03 16:27 | NUR ---
SPOKE TO PT SISTER- SHE STATES IF THE PT DOES NOT HAVE TRANSPORTATION [facility] PLEASE CALL HER AND SHE WILL TRY TO FACILITATE DISCHARGE TRANSPORTATION.
--- NOTE | 2023-09-03 16:42 | NUR ---
SHIFT SUMMARY- PT ALERT AND ORIENTED TO SELF AND FAMILY. PT HAS EATEN WELL TODAY, RECIEVED A FULL BED BATH THIS MORNING. CONDOM CATH HAD COME OFF IN THE NIGHT AND LINNEN CHANGE WAS REQUIRED. PT WAS UP IN THE CHAIR FOR LUNCH. HE HAD A CAN OF GIRZZLEY TOBACO THAT HE HAD TUCKED INTO HIS ATTENDS. IT WAS SOAKED IN URINE IT WAS PLACED IN THE TRASH. PT IS AWARE OF THIS. PT HAS BEEN PLEASENT AND COOPERATIVE WITH CARE. HE IS CURRENTLY IN BED, CALL LIGHT IN REACH NO S&S OF DISTRESS NOTED. BED ALARM USED FOR SAFETY ANS THE PT CAN BE IMPULSIVE.
[2023-09-03 20:51] VITALS: BP 127/87
[2023-09-04 04:33] VITALS: BP 119/84
--- NOTE | 2023-09-04 04:59 | NUR ---
SHIFT SUMMARY - PER REPORT, PT IS LEGALLY BLIND. PT IS CURRENTLY UP IN THE CHAIR. NO ACUTE CHANGES THROUGHOUT THIS SHIFT. PT DOES HAVE A DEEP COUGH, HOWEVER LUNG SOUNDS ARE CLEAR THROUGHOUT, AND PT IS ON RA. PT TOLERATES PO INTAKE, WITH HOB 90 AFTER INTAKE. CALL LIGHT WITHIN REACH WITH A PUSH BUTTON ON NURSE CALL BUTTON. BED IN LOW POSITION. BED ALARM ON. FLUIDS AT BEDSIDE. WILL CONTINUE TO MONITOR UNTIL AM SHIFT CHANGE.
[2023-09-04 05:54] LABS: BASOPHILS ABSOLUTE AUTO 0.04 K/mm3 (0.00-0.23); BASOPHILS PERCENT AUTO 0 % (0-2); EOSINOPHILS ABSOLUTE AUTO 0.04 K/mm3 (0.00-0.68); EOSINOPHILS PERCENT AUTO 0 % (0-6); Hematocrit 37.7 % (37.0-53.0); Hemoglobin 12.9 g/dL (13.5-17.5); IMMATURE GRAN PERCENT AUTO 1 % (0-1); LYMPHOCYTES PERCENT AUTO 11 % (21-46); MONOCYTES ABSOLUTE AUTO 1.03 K/mm3 (0.16-1.47); MONOCYTES PERCENT AUTO 9 % (4-13); Mean Corpuscular HGB 33.5 pg (26.0-34.0); Mean Corpuscular HGB Conc 34.2 g/dL (31.5-36.5); Mean Corpuscular Volume 98 fL (80-100); Mean Platelet Volume 8.9 fL (9.1-12.4); NEUTROPHILS ABSOLUTE AUTO 9.23 K/mm3 (1.96-9.15); NEUTROPHILS PERCENT AUTO 79 % (41-73); Platelet Count 303 K/mm3 (150-400); RDW Coefficient Variation 14.1 % (11.7-14.2); RDW Standard Deviation 51.4 fL (35.1-46.3); Red Blood Cell Count 3.85 M/mm3 (4.30-5.90); White Blood Cell Count 11.74 K/mm3 (4.00-11.30)
[2023-09-04 07:25] VITALS: BP 131/78
[2023-09-04 15:24] VITALS: BP 130/70
--- NOTE | 2023-09-04 16:42 | NUR ---
SHIFT SUMMARY PT AOX1, CONFUSED AND IMPULSIVE. BED ALARM AND CHAIR ALARM IN PLACE. PT LIKES TO GET UP QUICK AND MOVE TO ANOTHER SPOT IN THE ROOM. HE CAN GET IRRITABLE WHEN TOLD WHAT TO DO, HE IS EAGER TO GET OUT OF THE HOSPITAL AND TO THE NEW FACILITY, [facility]. SPOKE WITH HIS SISTER ON THE PHONE TODAY, UPDATED HER, SHE ALSO SPOKE WITH THE PT IN THE ROOM ON THE PHONE. HE IS BLIND BUT FEEDS HIMSELF WELL. NO C/O CP/PRESSURE/SOB/P/N/V. CALL LIGHT WITHIN REACH, BED IN THE LOWEST POSITION. WILL REPORT TO ONCOMING NURSE.
[2023-09-04 19:21] VITALS: BP 116/94
--- NOTE | 2023-09-05 04:36 | NUR ---
SHIFT SUMMARY 67 YR M ADMITTED ON 08/11/23. DNR. NO ACUTE CHANGES THIS SHIFT. PT IS OBVIOUSLY CONFUSED AND TALKS IF HE THINKS HE IS AT HOME. HE HAS NOT BEEN IMPULSIVE TO GET UP THIS SHIFT. HE HAS SLEPT FOR MOST OF THE SHIFT. NO C/O PAIN OR DISCOMFORT, AND NO S/S OF DISTRESS. HE HAS BEEN PLEASANT AND COOPERATIVE. BED IN LOW POSITION AND CALL LIGHT IN REACH.
[2023-09-05 05:51] VITALS: BP 115/81
[2023-09-05 07:27] VITALS: BP 109/73
[2023-09-05 15:07] VITALS: BP 110/74
--- NOTE | 2023-09-05 16:19 | NUR ---
SHIFT SUMMARY PT AOX1, IMPULSIVE BUT PLEASANT. HE HAS BEEN SLEEPING AND WATCHING TV A MAJORITY OF THE SHIFT. UP TO THE CHAIR THIS AM. CONTINENT/INCONTINENT, BRIEFS CHANGED NEEDED. NO COMPLAINTS FROM THE PT THIS SHIFT. APPETITE IS GOOD AND HE IS DRINKING FLUIDS. THE PT IS BLIND. CALL LIGHT WITHIN REACH, BED IN THE LOWEST POSITION. WILL REPORT TO ONCOMING NURSE.
--- NOTE | 2023-09-05 17:40 | NUR ---
Received a call from pt's sister Leonila, she is wondering why there are no diagnoses on pt's chart related to cognitive and/or neurological deficit r/t his brain bleed. Dr. Sherwood ordered OT cognitive eval for tomorrow. Plan to follow up with Dr. Castro tomorrow, and follow up with pt's sister. The patient is unable to be placed without the appropriate diagnosis.
[2023-09-05 19:25] VITALS: BP 103/72
[2023-09-06 02:25] VITALS: BP 106/83
--- NOTE | 2023-09-06 03:54 | NUR ---
SHIFT SUMMARY 67 YR M ADMITTED ON 08/11/23. DNR. NO ACUTE CHANGES THIS SHIFT. NO CALLS FROM FAMILY THIS SHIFT. PT HAS SLEPT OFF AND ON THROUGHOUT THE NIGHT. HE IS INCONTINENT AND DOES NOT USE THE CALL LIGHT. HE IS VERY PLEASANT AND LIKES TO CONVERSATE. HE HAS NOT BEEN IMPULSIVE THIS SHIFT. NO C/O PAIN OR DISCOMFORT. HIS MOOD IS GOOD AND HE LAUGHS ALOT. BED IN LOW POSITION AND CALL LIGHT IN REACH. WILL CONTINUE TO MONITOR.
[2023-09-06 07:25] VITALS: BP 101/74
[2023-09-06 12:04] LABS: FAT, FECAL - NEUTRAL Normal (Normal); FAT, FECAL - SPLIT Normal (Normal)
[2023-09-06 15:41] VITALS: BP 115/81
--- NOTE | 2023-09-06 17:34 | NUR ---
SHIFT SUMMARY: PT ORIENTED TO SELF. NO ACUTE CHANGES THIS SHIFT. NO CALLS FROM FAMILY THIS SHIFT. PT IMPULSIVE, WILL NOT USE CALL LOGHT. PT REFUSING BRIEF THIS EVENING DESPITE BEING INCONTINENT. PT BEGAN GETTING VERY AGITATED WHEN ATTEMPTING TO EXPLAIN WHY HE NEEDED ONE. PT STATES HE IS 50% BLIND. CALL LIGHT IN REACH. BED IN LOWEST POSITION.
[2023-09-06 19:44] VITALS: BP 109/74
[2023-09-07 02:41] VITALS: BP 110/68
--- NOTE | 2023-09-07 05:07 | NUR ---
SHIFT SUMMARY 67 YR M ADMITTED ON 08/11/23. DNR. NO ACUTE CHANGES THIS SHIFT. PT HAS SLEPT FOR MOST OF THIS SHIFT. HE HAS NOT BEEN IMPULSIVE THIS SHIFT. HE IS INCONTINENT BUT DOES NOT CALL FOR ASSISTANCE. HIS MOOD HAS BEEN FRIENDLY AND HAPPY ALTHOUGH HE DOES TEND TO GET AGITATED WHEN HAVING TO ROLL FOR BED CHANGES. BED IN LOW POSITION AND CALL LIGHT IN REACH. WILL CONTINUE TO MONITOR.
[2023-09-07 07:15] VITALS: BP 104/81
[2023-09-07 15:33] VITALS: BP 109/74
--- NOTE | 2023-09-07 16:30 | NUR ---
PATIENT MORE LETHARGIC AND MUCH WEAKER THAN YESTERDAY, REPORTED TO DR GALEAS
--- NOTE | 2023-09-07 17:52 | NUR ---
PATIENT AT BASELINE OREINTATION, MORE LETHARGIC/DELIRUIM, MAX ASSIST FOR TRANSFER, WAS AMBULATING TO THE BATHROOM YESTERDAY, NO ACUTE CHANGES, NOT IMPULSIVE, CALL LIGHT WITH IN REACH, WAITING ON PLACEMENT, WILL RELAY TO PM RN
[2023-09-07 21:21] VITALS: BP 104/76
[2023-09-08 03:26] VITALS: BP 113/81
--- NOTE | 2023-09-08 04:34 | NUR ---
SHIFT SUMMARY PT A&OX1 AND PLEASANT. DENIED FEELING ANY PAIN. PT HAD SLIGHT TEMP OF 99.7. TYLENOL GIVEN PER EMAR WITH GOOD EFFECT. PT SLEPT T/O NIGHT. COMPLETE BED CHANGE DONE ONCE. NO ACUTE CHANGES. VSS. BED IN LOWEST POSITION AND CALL LIGHT IN REACH.
[2023-09-08 08:06] VITALS: BP 109/86
[2023-09-08 16:08] VITALS: BP 121/87
--- NOTE | 2023-09-08 17:56 | NUR ---
NO ACUTE CHANGES OR IMPROVEMENTS, PATIENT CONTINUES TO BE VERY WEAK, REPOSITIONED, DENIES PAIN, WITHDRAWN, PLEASANT TO CARE, WILL RELAY TO PM RN
[2023-09-08 19:41] VITALS: BP 103/77
[2023-09-09 02:20] VITALS: BP 107/79
--- NOTE | 2023-09-09 04:26 | NUR ---
SHIFT SUMMARY PT HAD SLIGHT TEMPEARTURE AT START OF SHIFT OF 100.4. VERBALIZED NOT FEELING WELL. CALLED AND ORDER GIVEN FOR TEYLENOL BUT ONLY FOR TEMPERATURE GREATER THAN 101. PT DID NOT REQUIRE TEYLENOL DURING THE NIGHT. PT DENIED PAIN BUT WAS UNABLE TO SLEEP DURING THE NIGHT. BED IN LOWEST POSITION AND CALL LIGHT IN REACH.
[2023-09-09 05:31] LABS: BASOPHILS ABSOLUTE AUTO 0.05 K/mm3 (0.00-0.23); BASOPHILS PERCENT AUTO 1 % (0-2); EOSINOPHILS ABSOLUTE AUTO 0.03 K/mm3 (0.00-0.68); EOSINOPHILS PERCENT AUTO 1 % (0-6); Hematocrit 35.4 % (37.0-53.0); Hemoglobin 12.4 g/dL (13.5-17.5); IMMATURE GRAN ABSOLUTE AUTO 0.05 K/mm3 (0.00-0.10); IMMATURE GRAN PERCENT AUTO 1 % (0-1); LYMPHOCYTES PERCENT AUTO 17 % (21-46); MONOCYTES ABSOLUTE AUTO 1.26 K/mm3 (0.16-1.47); MONOCYTES PERCENT AUTO 19 % (4-13); Mean Corpuscular HGB 33.6 pg (26.0-34.0); Mean Corpuscular Volume 96 fL (80-100); Mean Platelet Volume 9.3 fL (9.1-12.4); NEUTROPHILS PERCENT AUTO 62 % (41-73); Platelet Count 235 K/mm3 (150-400); RDW Coefficient Variation 13.2 % (11.7-14.2); Red Blood Cell Count 3.69 M/mm3 (4.30-5.90); White Blood Cell Count 6.59 K/mm3 (4.00-11.30)
[2023-09-09 07:39] VITALS: BP 100/71
--- NOTE | 2023-09-09 18:19 | NUR ---
more alert today, reluctant to care, very stiff to reposition, patient repositioning self. cough more productive today, patient spitting sputumn on sheets instead of swallowing the sputumn, mask suggested in room due to uncovered coughing, pleasant and agreeable to care but at times very irritated, patient easily recovers to pleasant self, bed alarm on, call light with in reach, will relay to pm rn
[2023-09-09 19:28] VITALS: BP 103/77
[2023-09-10 04:17] VITALS: BP 112/75
--- NOTE | 2023-09-10 07:37 | NUR ---
SHIFT SUMMARY PT IS A&O TO SELF. IRRITABLE, BUT COOPERATIVE. VSS ON RA. LEFT VISUAL FIELD CUT. DENIES PAIN. TOLERATING A SOFT, BITE SIZE DIET, THINS WITH NO STRAWS. PT IS INCONTINENT OF BOWEL AND BLADDER, BRIEF IN PLACE. DID GET OOB A COUPLE TIMES FOR THE URINAL, VOIDING SMALL AMOUNTS OF TREV COLORED URINE. LARGE SOFT, BROWN BM X1. PT KEEPS TRYING TO REMOVE RUE POWERGLIDE, RE-COBANED. REMINDED PT HOW IMPORTANT IT IS FOR HIM TO NOT PULL IT. PT FREQUENTLY GETTING OOB, GETS FRUSTRATED AND ARGUES WHEN I TELL HIM HE IS TOO WEAK TO WALK TO BR. BED IN LOWEST POSITION, CALL LIGHT WITHIN REACH. PT DOES NOT CALL APPROPRIATELY, BED ALARM SET FOR PT'S SAFETY.
[2023-09-10 15:35] VITALS: BP 92/67
--- NOTE | 2023-09-10 17:01 | NUR ---
SHIFT SUMMARY PT AXO X1, IRRITABLE BUT COOPERATIVE WITH CARE. VSS THOUGH HYPOTENSIVE WITH AFTERNOON VS. AT 1535 PT WAS 92/67, THIS NURSE WAS NOT NOTIFIED. AT 1725 THIS NURSE RECHECKED AND PATIENT SLEEPING, BP WAS 97/70. THIS NURSE CALLED DR MCINTOSH TO NOTIFY, NO ANSWER. PT DENIES PAIN, SOB AND NV. PT DID STATE THAT HE WANTED HIS CHEWING TOBACCO AND BEER. PT FORGETFUL AND INSISTING THAT HE IS "IN HIS SHOP!". NO OTHER CHANGES THIS SHIFT. BED IN LOW POSITION, CALL LIGHT WITHIN REACH AND BED ALARM ON.
[2023-09-10 17:25] VITALS: BP 97/70
[2023-09-10 20:08] VITALS: BP 107/81
[2023-09-11 02:39] VITALS: BP 103/74
--- NOTE | 2023-09-11 05:33 | NUR ---
SHIFT SUMMARY PT IS A&O TO SELF. VSS ON RA. NO ACUTE CHANGES THIS SHIFT. DENIES PAIN. CAPS CHANGED ON RUE POWERGLIDE. LEFT VISUAL FIELD CUT. TOLERATING A SOFT BITE SIZE DIET, THINS WITH NO STRAWS. PT INCONTINENT OF URINE, NO BM THIS SHIFT, BRIEF IN PLACE. PT SLEPT T/O NOC. BED IN LOWEST POSITION, CALL LIGT WITHIN REACH. BED ALARM SET FOR PT'S SAFETY. NOOB THIS SHIFT.
[2023-09-11 07:21] VITALS: BP 102/74
[2023-09-11 16:06] VITALS: BP 110/78
--- NOTE | 2023-09-11 18:13 | NUR ---
SHIFT SUMMARY PT AXO X1-2. HE STATED THAT HE IS IN THE HOSPITAL BUT THIS BUILDING USED TO BE HIS SHOP. PT DENIES PAIN, SOB AND NV. OCCASIONAL HACKING COUGH, ON RA. NO ACUTE CHANGES THIS SHIFT. VSS. BED AND CHAIR ALARM ON. CALL LIGHT WITHIN REACH AND BED IN LOW POSITION. POWERGLIDE PATENT AND SALINE LOCKED.
[2023-09-11 20:08] VITALS: BP 105/69
[2023-09-12 03:17] VITALS: BP 107/79
--- NOTE | 2023-09-12 05:31 | NUR ---
SHIFT SUMMARY PT IS A&O TO SELF. IRRITABLE. DENIES PAIN. VSS ON RA. NO ACUTE CHANGES OVER NOC. POWERGLIDE TO CARRIE, PATENT, DOES NOT DRAW. NOOB THIS SHIFT. INCONTINENT OF URINE, BRIEF IN PLACE. HE IS A CHECK AND CHANGE. NO BM THIS SHIFT. BED IN LOWEST POSITION, CALL LIGHT WITHIN REACH. BED ALARM SET FOR PT'S SAFETY.
[2023-09-12 07:23] VITALS: BP 107/76
--- NOTE | 2023-09-12 16:05 | NUR ---
DAYSHIFT SUMMARY Patient alert & oriented to self. Patient is cooperative with cares. Vitals stable. Plan to DC tomorrow to memory care facility. Reviewed plan with patient & sister. Per ok to remove powerglide in RUE today. IV cath intact, site WNL. Bedalarm activated and audible, call light in reach. Will continue plan of care.
[2023-09-12 16:18] VITALS: BP 118/84
[2023-09-12 19:44] VITALS: BP 118/85
--- NOTE | 2023-09-13 03:59 | NUR ---
SHIFT SUMMARY MR COLINDRES HAS BEEN CONFUSED, ORIENTATED TO SELF ONLY. HE APPEARS TO HAVE SLEPT WELL UNTIL ABOUT 330AM. INCONTINENT OF URINE AND SOFT STOOLS. HE HAS DENIED HAVING PAIN. BED LOW, CALL LIGHT IN REACH. BED ALARM ON.
[2023-09-13 04:56] VITALS: BP 112/83
[2023-09-13 08:31] VITALS: BP 106/78
--- NOTE | 2023-09-13 11:54 | NUR ---
DISCHARGE NOTE: PATIENT WAS DRESSED AND ASSISTED TO THE RESTROOM PRIOR TO DISCHARGE. HIS BELONGINGS WERE COLLECTED AND GIVEN TO MEDICAL TRANSPORT ALONG WITH HIS PAPERWORK. PATIENT TRANSPORTED OUT OF HOSPITAL VIA WHEELCHAIR WITH [facility]. NO SIGNS OR SYMPTOMS OF DISTRESS WITH DISCHARGE.
== END 2023-09-13 11:04 | DRG 91 ==
LOC: ER 18:10 → PCU 18:11 → MEDS 08-11 16:51 → PCU 08-11 16:51 → ICUE 08-16 19:55 → PCU 08-18 02:01 → MEDS 08-23 15:56
PROVIDERS: Emergency Medicine; Family Medicine; Hospitalist; Internal Medicine; Student in an Organized Health Care Education/Training Program; ADMIT Student in an Organized Health Care Education/Training Program
PROC: HZ2ZZZZ Detoxification Services for Substance Abuse Treatment (ICD-10-PCS; principal; 2023-08-11)
DX: G92.8 Other toxic encephalopathy (principal); G93.5 Compression of brain; I62.03 Nontraumatic chronic subdural hemorrhage; E44.0 Moderate protein-calorie malnutrition; F10.221 Alcohol dependence with intoxication delirium; E87.1 Hypo-osmolality and hyponatremia; Z66 Do not resuscitate; Z51.5 Encounter for palliative care; Z20.822 Contact with and (suspected) exposure to COVID-19; J44.9 Chronic obstructive pulmonary disease, unspecified; F03.90 Unspecified dementia, unspecified severity, without behavioral disturbance, psychotic disturbance, mood disturbance, and anxiety; D53.9 Nutritional anemia, unspecified; R13.10 Dysphagia, unspecified; D72.829 Elevated white blood cell count, unspecified; E87.6 Hypokalemia; R10.9 Unspecified abdominal pain; Z68.27 Body mass index [BMI] 27.0-27.9, adult; R73.9 Hyperglycemia, unspecified; E88.09 Other disorders of plasma-protein metabolism, not elsewhere classified; Z87.891 Personal history of nicotine dependence; Z79.51 Long term (current) use of inhaled steroids
CPT/HCPCS: 0241U; 36415; 70450; 71045; 71046; 74230; 80048; 80053; 80069; 81003; 82607; 82705; 82746; 82947; 83735; 83880; 83930; 83935; 84100; 84300; 84443; 84484; 85014; 85018; 85025; 85027; 92526; 92610; 92611; 93005; 93010; 94640; 94644; 94664; 94760; 94762; 96361; 96365; 96375; 97110; 97116; 97129; 97161; 97166; 97530; 97535; 99285-25; A9270; C1751; G0378; J1100; J1650; J2930; J3411; J3480; J7030; J7050; J7120; J7512

== ENCOUNTER → 2023-09-28 | Outpatient (CLI) | payer MEDICARE, OTHER ==
[2023-09-28 16:28] LABS: Source, Urine Clean Catch
[2023-09-28 16:53] LABS: Appearance, Urine Hazy (Clear); Bilirubin, Urine Neg (Neg); Blood, Urine Neg (Neg); Color, Urine Yellow (P-Yellow); Glucose Qualitative, Urine Neg (Neg); Ketones, Urine Neg (Neg); Leukocyte Esterase, Urine 1+ (Neg); Nitrite, Urine Neg (Neg); Protein, Urine Neg (Neg); Specific Gravity, Urine 1.015 (1.003-1.022); Urobilinogen, Urine NORM (Normal)
[2023-09-28 17:03] LABS: Amorphous Heavy (0-Heavy); Bacteria Few /hpf; Calcium Oxalate Crystals Few /hpf; Red Blood Cells, Urine 0-2 /hpf (0-2); Squamous Epithelial Cells Few /hpf (Few)
== END | disposition home or self-care (01) ==
LOC: LAB SHORT 16:26 → LAB 16:26
PROVIDERS: Nurse Practitioner Family
DX: N39.0 Urinary tract infection, site not specified (principal)
CPT/HCPCS: 81001; 87086

== ENCOUNTER 2024-06-14 15:09 | Inpatient (IN) | payer MEDICARE, OTHER ==
[~2024-06-14] VITALS: Ht 172.7 cm; Wt 63.0 kg
[~2024-06-14 15:09] MED LIST changes: +ALBU90OI INH; -Ventolin/Prove6.7 GM INH
[2024-06-14 15:53] LABS: Source, Urine Voided
[2024-06-14 15:59] LABS: BASOPHILS ABSOLUTE AUTO 0.11 K/mm3 (0.00-0.23); BASOPHILS PERCENT AUTO 1 % (0-2); EOSINOPHILS ABSOLUTE AUTO 0.18 K/mm3 (0.00-0.68); EOSINOPHILS PERCENT AUTO 1 % (0-6); Hematocrit 36.8 % (37.0-53.0); Hemoglobin 12.3 g/dL (13.5-17.5); IMMATURE GRAN ABSOLUTE AUTO 0.35 K/mm3 (0.00-0.10); IMMATURE GRAN PERCENT AUTO 2 % (0-1); LYMPHOCYTES ABSOLUTE AUTO 1.32 K/mm3 (0.84-5.20); LYMPHOCYTES PERCENT AUTO 7 % (21-46); MONOCYTES ABSOLUTE AUTO 1.68 K/mm3 (0.16-1.47); MONOCYTES PERCENT AUTO 9 % (4-13); Mean Corpuscular HGB 27.9 pg (26.0-34.0); Mean Corpuscular HGB Conc 33.4 g/dL (31.5-36.5); Mean Corpuscular Volume 83 fL (80-100); Mean Platelet Volume 8.5 fL (9.1-12.4); NEUTROPHILS PERCENT AUTO 80 % (41-73); Platelet Count 687 K/mm3 (150-400); RDW Coefficient Variation 13.7 % (11.7-14.2); Red Blood Cell Count 4.41 M/mm3 (4.30-5.90); White Blood Cell Count 18.44 K/mm3 (4.00-11.30)
[2024-06-14 16:00] LABS: Appearance, Urine Clear (Clear); Bilirubin, Urine Neg (Neg); Blood, Urine Neg (Neg); Color, Urine Yellow (P-Yellow); Glucose Qualitative, Urine Neg (Neg); Ketones, Urine Neg (Neg); Leukocyte Esterase, Urine Neg (Neg); Nitrite, Urine Neg (Neg); Protein, Urine Neg (Neg); Urobilinogen, Urine 1+ (Normal)
[2024-06-14 16:20] LABS: Albumin, Blood 2.3 g/dL (3.4-5.0); Albumin/Globulin Ratio 0.5 (0.8-1.8); Bilirubin, Total 0.4 mg/dL (0.1-1.0); Bun/Creatinine Ratio 14.3 (12.0-20.0); Calcium, Blood 8.5 mg/dL (8.5-10.1); Creatinine, Blood 0.56 mg/dL (0.60-1.20); Globulin, Blood 4.7 g/dL (2.2-4.0); Potassium, Blood 4.2 mmol/L (3.5-5.5)
[2024-06-14] MEDS ORDERED: Piperacillin/Tazobactam Sod 4.5 GM in NS 100 ML IV ONE (19:00)
[2024-06-14] MEDS ORDERED: NS 1,000 ML IV SCH (20:10)
[2024-06-14] MEDS ORDERED: FLU VACC TS2024-25(6MOS UP)/PF 45 MCG/0.5 ML SYRINGE IM ONE (20:20)
[2024-06-14] MEDS ORDERED: Vancomycin HCL 1,000 MG in NS 250 ML IV ONE (20:50)
[2024-06-14] MEDS ORDERED: Ondansetron HCl 2 MG / ML 2ML Vial IV PRN (20:55)
[2024-06-14] MEDS ORDERED: HYDROmorphone HCl/Pf 1MG SYR IV PRN (20:55)
[2024-06-14] MEDS ORDERED: OxyCODONE HCL 5 MG TAB PO PRN ×2 (21:00→21:10)
[2024-06-14] MEDS ORDERED: OxyCODONE HCL 5 MG TAB PO ONE (21:00)
[2024-06-14] MEDS ORDERED: Acetaminophen 325 MG TABLET PO ONE (21:00)
[2024-06-14] MEDS ORDERED: Lactobacil 2-S.Thermo-Bifido 1 1 Cap PO SCH (21:00)
[2024-06-14] MEDS ORDERED: Acetaminophen 325 MG TABLET PO PRN (21:00)
[2024-06-14] MEDS ORDERED: Ketorolac Tromethamine 30mg Vial IM PRN (21:05)
[2024-06-14 21:20] LABS: C-REACTIVE PROTEIN, EXT RANGE 9.12 mg/dL (0.000-0.300)
[2024-06-14 21:21] LABS: Phosphorus, Blood 3.1 mg/dL (2.5-4.9)
[2024-06-14 21:56] LABS: International Normalized Ratio 1.22; Prothrombin Time Results 12.9 Sec (9.7-11.5)
[2024-06-14 22:24] VITALS: BP 97/64
[2024-06-14] MEDS ORDERED: BUSPIRONE HCL7.5 M1 PO (22:31)
[2024-06-14] MEDS ORDERED: DIVA250ER PO (22:32)
[2024-06-14] MEDS ORDERED: FURO20 PO (22:32)
[2024-06-14] MEDS ORDERED: INDO50 PO (22:34)
[2024-06-14] MEDS ORDERED: POTA10T PO (22:35)
[2024-06-14] MEDS ORDERED: QUET25 PO (22:36)
[2024-06-14] MEDS ORDERED: IPRAT-ALBUT 0.5-3 ML INH (22:40)
[2024-06-14] MEDS ORDERED: NS 250 ML IV PRN (23:00)
[2024-06-14] MEDS ORDERED: Vancomycin HCL 500 MG in NS 250 ML IV ONE (23:40)
[2024-06-15] VITALS (17 sets, daily range): BP systolic 63–119; BP diastolic 37–73
[2024-06-15] MEDS ORDERED: Meropenem 1,000 MG in NS 100 ML IV SCH
--- NOTE | 2024-06-15 05:30 | NUR ---
TAPERING MACHINE OPERATOR SUMMARY PT IS FROM [facility]. POA IS HIS SISTER SHARON. [phone]. PT HAS BEEN COOPERATIVE AND ORIENTED X 4 WITH SOME SHORT TERM MEMORY LOSS AND REPETITION OF QUESTIONS. HAS A HISTORY OF ETOH DEMENTIA PER PAPER CHART FROM FACILITY. PAIN MANAGED WITH OXYCODONE AND IV DILAUDID FOR BREAKTHROUGH. TORADOL IS WRITTEN FOR "IM" INSTEAD OF IV, WILL PASS ON TO DAYSHIFT NURSE TO ASK THE DOCTOR TO CHANGE THE ROUTE OF THE TORADOL. R FLANK IS VERY RED AND SWOLLEN. PICTURE TAKEN AND PLACED IN PAPER CHART AND REDNESS OUTLINED WITH STERILE WOUND MARKER. OF NOTE, PT APPARENTLY HAS A LONG HISTORY OF PRURITIS AND TAKES BENEDRYL AT HOME. HE IS COVERED IN SCRATCH OBRIEN, ESPECIALLY ALL OVER HIS BACK, CHEST, AND ABDOMEN. WORTH NOTING THAT HE CAME INTO THE HOSPITAL WITH THIS AND IT IS NOT A REACTION TO A NEW MEDICATION WEVE STARTED HIM ON. PT HAS BEEN NPO FOR SURGICAL PROCEDURE TODAY.
[2024-06-15 05:44] LABS: BASOPHILS ABSOLUTE AUTO 0.12 K/mm3 (0.00-0.23); BASOPHILS PERCENT AUTO 1 % (0-2); EOSINOPHILS PERCENT AUTO 2 % (0-6); Hematocrit 36.6 % (37.0-53.0); Hemoglobin 11.8 g/dL (13.5-17.5); IMMATURE GRAN ABSOLUTE AUTO 0.35 K/mm3 (0.00-0.10); IMMATURE GRAN PERCENT AUTO 2 % (0-1); LYMPHOCYTES ABSOLUTE AUTO 1.17 K/mm3 (0.84-5.20); LYMPHOCYTES PERCENT AUTO 7 % (21-46); MONOCYTES ABSOLUTE AUTO 1.71 K/mm3 (0.16-1.47); MONOCYTES PERCENT AUTO 10 % (4-13); Mean Corpuscular HGB 27.7 pg (26.0-34.0); Mean Corpuscular HGB Conc 32.2 g/dL (31.5-36.5); Mean Corpuscular Volume 86 fL (80-100); Mean Platelet Volume 8.1 fL (9.1-12.4); NEUTROPHILS PERCENT AUTO 78 % (41-73); Platelet Count 695 K/mm3 (150-400); RDW Coefficient Variation 13.8 % (11.7-14.2); RDW Standard Deviation 43.2 fL (35.1-46.3); Red Blood Cell Count 4.26 M/mm3 (4.30-5.90); White Blood Cell Count 16.55 K/mm3 (4.00-11.30)
[2024-06-15 06:03] LABS: Albumin, Blood 2.1 g/dL (3.4-5.0); Albumin/Globulin Ratio 0.5 (0.8-1.8); Bilirubin, Total 0.4 mg/dL (0.1-1.0); Bun/Creatinine Ratio 11.2 (12.0-20.0); Calcium, Blood 8.7 mg/dL (8.5-10.1); Creatinine, Blood 0.62 mg/dL (0.60-1.20); Globulin, Blood 4.5 g/dL (2.2-4.0); Potassium, Blood 4.3 mmol/L (3.5-5.5); Total Protein, Blood 6.6 g/dL (6.4-8.2)
[2024-06-15] MEDS ORDERED: Ketorolac Tromethamine 15mg Vial IV PRN (07:35)
[2024-06-15] MEDS ORDERED: Bupivacaine 0.5% HCl 5 MG/ML 30MLVIAL ONE (07:37)
[2024-06-15] MEDS ORDERED: Ipratropium/Albuterol SulF 2.5-0.5MG/3 ML Amp INH PRN (08:10)
[2024-06-15] MEDS ORDERED: FentaNYL Citrate 50 MCG/ML 2 ML Injection ONE (08:30)
[2024-06-15] MEDS ORDERED: Albumin (Human) 12.5gm/250ml 500 ML IV ONE (08:31)
[2024-06-15] MEDS ORDERED: Etomidate 2MG / ML 10ML Vial ONE (08:31)
[2024-06-15] MEDS ORDERED: SuccINYLCHOLINE Chloride 100 MG/5 ML 5MLSYR ONE (09:10)
[2024-06-15] MEDS ORDERED: Lidocaine HCl 2% 20 ML MDV ONE (09:10)
[2024-06-15] MEDS ORDERED: Dexamethasone Sod Phos 10 MG/ML 1ML VIAL ONE (09:10)
[2024-06-15] MEDS ORDERED: Phenylephrine HCl 10mg/ml 1 ml Vial ONE (09:10)
[2024-06-15] MEDS ORDERED: Ondansetron HCl 2 MG / ML 2ML Vial ONE (09:10)
[2024-06-15] MEDS ORDERED: Magnesium Hydroxide Conc 10 ML UDC PO PRN (09:40)
[2024-06-15] MEDS ORDERED: Polyethylene Glycol 3350 17 gm PO PRN (09:45)
[2024-06-15] MEDS ORDERED: Vancomycin HCL 1,000 MG in NS 250 ML IV SCH (10:00)
[2024-06-15] MEDS ORDERED: Midodrine 2.5 MG Tab PO SCH (13:00)
[2024-06-15] MEDS ORDERED: Lactated Ringer's 1,000 ML IV SCH (13:00)
[2024-06-15] MEDS ORDERED: Albuterol 2.5 MG/3 ML VIAL INH PRN (13:35)
--- NOTE | 2024-06-15 18:35 | NUR ---
PT TO I&D THIS AM. DID HAVE SOFT BP. BEFORE GONE AND ALSO WHEN BACK. DISCUSSED WITH DR. MA STARTED AND MAIN FLUIDS. PT STATES IS ALWAYS LOW BP. CRACKLES FINE IN BASES THIS AFT. WEANED FROM 3L TO 1L O2. EXPECT OFF SOON. PT IS MOSTLY BLIND, FINDS FOOD DISAGREEABLE. NO OTHER CONCERNS NOTED. BED IN LOW POSITION, CALL LITE IN REACH, CALLS APPROP
[2024-06-15] MEDS ORDERED: Sennosides 8.6 MG Tab PO SCH (21:00)
[2024-06-15] MEDS ORDERED: Docusate Sodium 100 MG Cap PO SCH (21:00)
[2024-06-16] VITALS (7 sets, daily range): BP systolic 83–101; BP diastolic 51–65
[2024-06-16 09:01] LABS: BASOPHILS ABSOLUTE AUTO 0.05 K/mm3 (0.00-0.23); BASOPHILS PERCENT AUTO 0 % (0-2); EOSINOPHILS ABSOLUTE AUTO 0.02 K/mm3 (0.00-0.68); EOSINOPHILS PERCENT AUTO 0 % (0-6); Hematocrit 35.9 % (37.0-53.0); Hemoglobin 11.6 g/dL (13.5-17.5); IMMATURE GRAN ABSOLUTE AUTO 0.47 K/mm3 (0.00-0.10); IMMATURE GRAN PERCENT AUTO 2 % (0-1); LYMPHOCYTES ABSOLUTE AUTO 2.12 K/mm3 (0.84-5.20); LYMPHOCYTES PERCENT AUTO 9 % (21-46); MONOCYTES ABSOLUTE AUTO 1.02 K/mm3 (0.16-1.47); MONOCYTES PERCENT AUTO 5 % (4-13); Mean Corpuscular HGB 28.1 pg (26.0-34.0); Mean Corpuscular HGB Conc 32.3 g/dL (31.5-36.5); Mean Corpuscular Volume 87 fL (80-100); Mean Platelet Volume 8.4 fL (9.1-12.4); NEUTROPHILS ABSOLUTE AUTO 18.84 K/mm3 (1.96-9.15); NEUTROPHILS PERCENT AUTO 84 % (41-73); Platelet Count 717 K/mm3 (150-400); RDW Coefficient Variation 13.8 % (11.7-14.2); RDW Standard Deviation 43.3 fL (35.1-46.3); Red Blood Cell Count 4.13 M/mm3 (4.30-5.90); White Blood Cell Count 22.52 K/mm3 (4.00-11.30)
[2024-06-16 09:30] LABS: Bun/Creatinine Ratio 20.3 (12.0-20.0); Calcium, Blood 8.8 mg/dL (8.5-10.1); Creatinine, Blood 0.59 mg/dL (0.60-1.20); Potassium, Blood 4.1 mmol/L (3.5-5.5)
[2024-06-16 09:32] LABS: Vancomycin, Trough 18.7 ug/mL (5.0-10.0)
[2024-06-17 02:56] VITALS: BP 88/61
[2024-06-17 04:16] VITALS: BP 94/58
[2024-06-17 07:12] VITALS: BP 86/60
[2024-06-17 13:23] VITALS: BP 98/66
[2024-06-17] MEDS ORDERED: Haloperidol1 MG PO (15:06)
--- NOTE | 2024-06-17 17:49 | NUR ---
PATIENT A/OX4, BUT FORGETFUL AT TIMES. UP INCHAIR THIS EVENING FOR A FEW HOURS, NEEDS ENCOURAGEMENT TO GET OOB. B/P REMAINS LOW, IMPROVED WITH SCHEDULED MIDODRINE. PAIN CONTROLLED WITH PO PAIN MEDICATIONS THIS SHIFT. DRESSING TO R FLANK REMAINS C/D/I, REDNESS APPEARS IMPROVED. BELTRAN DRAIN OUTPUT 20ML'S TODAY. PATIENT PLEASANT AND COOPERATIVE WITH CARE, NO NEW CONCERNS THIS SHIFT.
[2024-06-17 18:17] VITALS: BP 91/55
[2024-06-17 20:05] VITALS: BP 97/67
[2024-06-17] MEDS ORDERED: CeFAZolin Sodium 2,000 MG in NS 100 ML IV SCH (22:00)
[2024-06-18 05:21] VITALS: BP 99/63
--- NOTE | 2024-06-18 06:07 | NUR ---
GRANTS AND CONTRACTS ASSISTANT SUMMARY NO ACUTE EVENTS OVERNIGHT. KAUSHIK DRAIN OUPUT IS 15CC SEROSANG.
[2024-06-18] MEDS ORDERED: Cosyntropin 0.25 MG / ML 1ML Vial IV ONE (08:00)
[2024-06-18 08:08] VITALS: BP 104/66
[2024-06-18 08:17] LABS: Hematocrit 34.2 % (37.0-53.0); Hemoglobin 10.9 g/dL (13.5-17.5); Mean Corpuscular HGB 27.5 pg (26.0-34.0); Mean Corpuscular HGB Conc 31.9 g/dL (31.5-36.5); Mean Corpuscular Volume 86 fL (80-100); Mean Platelet Volume 8.2 fL (9.1-12.4); Platelet Count 688 K/mm3 (150-400); RDW Coefficient Variation 13.9 % (11.7-14.2); RDW Standard Deviation 43.2 fL (35.1-46.3); Red Blood Cell Count 3.97 M/mm3 (4.30-5.90); White Blood Cell Count 13.91 K/mm3 (4.00-11.30)
[2024-06-18 08:37] LABS: Bun/Creatinine Ratio 19.9 (12.0-20.0); Calcium, Blood 8.5 mg/dL (8.5-10.1); Creatinine, Blood 0.6 mg/dL (0.60-1.20); Percent Saturation 10.7 % (20.0-50.0); Potassium, Blood 4.1 mmol/L (3.5-5.5)
[2024-06-18 09:04] LABS: BASOPHILS PERCENT MAN 0 % (0-2); EOSINOPHILS ABSOLUTE MAN 0.13 K/mm3 (0.00-0.68); EOSINOPHILS PERCENT MAN 1 % (0-6); LYMPHOCYTES % ATYPICAL MANUAL 3 % (0-0); LYMPHOCYTES ABSOLUTE MAN 1.94 K/mm3 (0.84-5.20); LYMPHOCYTES PERCENT MAN 11 % (21-46); MONOCYTES ABSOLUTE MAN 1.39 K/mm3 (0.16-1.47); MONOCYTES PERCENT MAN 10 % (4-13); NEUTROPHILS ABSOLUTE MAN 10.43 K/mm3 (1.96-9.15); SEG NEUTROPHILS PERCENT MAN 75 % (41-73); TOTAL CELLS COUNTED 100
[2024-06-18] MEDS ORDERED: Iron Dextran 50 MG / ML 2ML Vial IV ONE (11:35)
[2024-06-18 12:08] VITALS: BP 99/68
[2024-06-18] MEDS ORDERED: Iron Dextran 975 MG in NS 250 ML IV ONE (12:30)
[2024-06-18 14:40] VITALS: BP 89/64
--- NOTE | 2024-06-18 16:58 | NUR ---
PATIENT A/OX4, FORGETFUL. UP TO CHAIR TODAY WITH SBA. DRESSING TO R FLANK REMAINS C/D/I. 10ML'S OF SEROSANGUINEOUS FLUID OUT OF KAUSHIK DRAIN THIS SHIFT. OXYCODONE AND TYLENOL USED TO TREAT PAIN WITH STATED RELIEF. PLAN IS TO DC BACK TO [facility] WHEN STABLE. NO NEW CONCERNS THIS SHIFT.
[2024-06-18 19:52] VITALS: BP 100/69
[2024-06-19 03:53] VITALS: BP 102/72
--- NOTE | 2024-06-19 06:24 | NUR ---
SHIFT SUMMARY: Pt is admitted for abscess of the skin in the ABD area and is a full code. Is alert and able to make needs known. ADLs have been SBA. denies pain or discomfort when asked. KAUSHIK drain to right ribs in place with scant output.
[2024-06-19 07:20] VITALS: BP 106/77
[2024-06-19 15:02] VITALS: BP 95/72
--- NOTE | 2024-06-19 17:19 | NUR ---
SHIFT SUMMARY: PT AOX4, POOR VISION BUT CAPABALE OF EXPRESSING NEEDS. CAN AMBULATE ON HIS OWN WITH DIRECTIONS SINCE THEY DO NOT KNOW THE ROOM VERY WELL. ATE MOST OF THEIR MEALS AND ANXIOUS TO GO BACK TO THEIR HOME. PLEASANT AFFECT AND MOOD. SHOULD BE GOING HOME TOMORROW ACCORDING TO CARE MANAGEMENT. DRINKING PLEANTY OF WATER. PT CURRENTLY RESTING LISTENING TO TV. BED IN LOWEST POSITION AND CALL LIGHT IN REACH. CONTINUING CARE.
[2024-06-19 19:20] VITALS: BP 100/59
[2024-06-20 04:21] VITALS: BP 92/53
--- NOTE | 2024-06-20 06:47 | NUR ---
SHIFT SUMMARY: Pt is admitted for abscess of the skin in the ABD area and is a full code. Is alert and able to make needs known. ADLs have been SBA. denies pain or discomfort when asked. Dressing to old KAUSHIK site CDI.
[2024-06-20 07:16] VITALS: BP 108/65
--- NOTE | 2024-06-20 13:41 | NUR ---
DISCHARGE SUMMARY: PT AOX4 LEAVING VIA MEDICAL TRANSPORT TO HOME. PT ABLE TO AMBULATE INTO WHEELCHAIR AND UNDERSTOOD DISCHARGE PLANNING. MEDICATIONS FAXED TO [facility] AND HARD SCRIPT IN FOLDER WITH PATIENT TO TAKE TO LABORATORY CHEMIST. PT IN GOOD MOOD AND AFFECT EXCITED TO GO HOME.
== END 2024-06-20 13:18 | disposition home health service (06) | DRG 863 ==
LOC: ER 15:09 → MEDS 20:18 → ENPENDDIS 06-19 12:58 → MEDS 06-20 13:18
PROVIDERS: Emergency Medicine; Family Medicine; Internal Medicine; Surgery; ADMIT Internal Medicine
PROC: 0J9800Z Drainage of Abdomen Subcutaneous Tissue and Fascia with Drainage Device, Open Approach (ICD-10-PCS; principal; 2024-06-15 08:00)
DX: T81.41XA Infection following a procedure, superficial incisional surgical site, initial encounter (principal); L02.211 Cutaneous abscess of abdominal wall; E87.1 Hypo-osmolality and hyponatremia; Z28.21 Immunization not carried out because of patient refusal; J44.9 Chronic obstructive pulmonary disease, unspecified; E88.09 Other disorders of plasma-protein metabolism, not elsewhere classified; D75.838 Other thrombocytosis; Z98.890 Other specified postprocedural states; D50.9 Iron deficiency anemia, unspecified; F60.9 Personality disorder, unspecified; Z87.891 Personal history of nicotine dependence; Z79.899 Other long term (current) drug therapy
CPT/HCPCS: 36415; 74177; 80048; 80053; 80202; 80400; 81003; 82533; 82728; 83540; 83550; 83605; 83690; 84100; 85025; 85610; 85651; 85730; 86140; 87040; 87070; 87075; 87077; 87147; 87186; 87205; 93005; 93010; 94640; 94664; 94760; 96365-59; 99285-25; A9270; J0330; J0690; J0834; J1100; J1170; J1750; J1885; J2185; J2371; J2405; J2543; J3010; J3370; J7030; J7050; J7120; P9045; Q9967

== ENCOUNTER 2024-08-25 10:22 | Emergency (ER) | payer MEDICARE, OTHER ==
[~2024-08-25] VITALS: Ht 167.6 cm; Wt 68.0 kg
[~2024-08-25 10:22] MED LIST changes: +BUSPIRONE HCL7.5 M1 PO; +DIVA250ER PO; +FURO20 PO; +Haloperidol1 MG PO; +INDO50 PO; +IPRAT-ALBUT 0.5-3 ML INH; +POTA10T PO; +QUET25 PO
[2024-08-25] MEDS ORDERED: ALLO100 PO (11:44)
[2024-08-25] MEDS ORDERED: COLCHICINE0.6 MG PO (11:45)
[2024-08-25] MEDS ORDERED: Seroquel Xr50 MG PO (11:46)
[2024-08-25] MEDS ORDERED: MELO7.5 PO (11:46)
[2024-08-25] MEDS ORDERED: METTREX2.5 PO (11:46)
[2024-08-25 12:17] LABS: BASOPHILS ABSOLUTE AUTO 0.06 K/mm3 (0.00-0.23); BASOPHILS PERCENT AUTO 1 % (0-2); EOSINOPHILS ABSOLUTE AUTO 0.12 K/mm3 (0.00-0.68); EOSINOPHILS PERCENT AUTO 1 % (0-6); Hematocrit 42.3 % (37.0-53.0); Hemoglobin 14.2 g/dL (13.5-17.5); IMMATURE GRAN ABSOLUTE AUTO 0.04 K/mm3 (0.00-0.10); IMMATURE GRAN PERCENT AUTO 1 % (0-1); LYMPHOCYTES ABSOLUTE AUTO 1.39 K/mm3 (0.84-5.20); LYMPHOCYTES PERCENT AUTO 16 % (21-46); MONOCYTES ABSOLUTE AUTO 0.78 K/mm3 (0.16-1.47); MONOCYTES PERCENT AUTO 9 % (4-13); Mean Corpuscular HGB 29.5 pg (26.0-34.0); Mean Corpuscular HGB Conc 33.6 g/dL (31.5-36.5); Mean Corpuscular Volume 88 fL (80-100); Mean Platelet Volume 8.5 fL (9.1-12.4); NEUTROPHILS ABSOLUTE AUTO 6.34 K/mm3 (1.96-9.15); NEUTROPHILS PERCENT AUTO 73 % (41-73); Platelet Count 360 K/mm3 (150-400); RDW Coefficient Variation 18.8 % (11.7-14.2); RDW Standard Deviation 60.3 fL (35.1-46.3); Red Blood Cell Count 4.82 M/mm3 (4.30-5.90); White Blood Cell Count 8.73 K/mm3 (4.00-11.30)
[2024-08-25 12:32] LABS: International Normalized Ratio 1.01; Prothrombin Time Results 10.8 Sec (9.7-11.5)
[2024-08-25 12:43] LABS: Albumin, Blood 3.2 g/dL (3.4-5.0); Albumin/Globulin Ratio 0.8 (0.8-1.8); Bilirubin, Total 0.4 mg/dL (0.1-1.0); Bun/Creatinine Ratio 16.6 (12.0-20.0); Calcium, Blood 9.3 mg/dL (8.5-10.1); Creatinine, Blood 0.79 mg/dL (0.60-1.20); Globulin, Blood 3.9 g/dL (2.2-4.0); Total Protein, Blood 7.1 g/dL (6.4-8.2)
[2024-08-25 13:00] VITALS: BP 104/75
[2024-08-25] MEDS ORDERED: Doxycycline150 MG PO (13:42)
== END 2024-08-25 14:06 | disposition home or self-care (01) ==
LOC: ER 10:22
PROVIDERS: Student in an Organized Health Care Education/Training Program
DX: L02.211 Cutaneous abscess of abdominal wall (principal); J44.9 Chronic obstructive pulmonary disease, unspecified; Z79.899 Other long term (current) drug therapy
CPT/HCPCS: 10060; 74177; 80053; 85025; 85610; 96374-59; 99284-25; Q9967

== ENCOUNTER 2024-09-25 11:38 | Emergency (ER) | payer MEDICARE, OTHER ==
[~2024-09-25] VITALS: Ht 170.2 cm; Wt 68.0 kg
[~2024-09-25 11:38] MED LIST changes: +ALLO100 PO; +COLCHICINE0.6 MG PO; +Doxycycline150 MG PO; +MELO7.5 PO; +METTREX2.5 PO; +Seroquel Xr50 MG PO
[2024-09-25 11:41] VITALS: BP 110/74
[2024-09-25] MEDS ORDERED: Doxycycline Mo100 M1 PO ×2 (12:43→12:55)
== END 2024-09-25 13:00 | disposition home or self-care (01) ==
LOC: ER 11:38
DX: L03.311 Cellulitis of abdominal wall (principal); J44.9 Chronic obstructive pulmonary disease, unspecified; Z79.899 Other long term (current) drug therapy
CPT/HCPCS: 99282

== ENCOUNTER → 2024-11-26 | Outpatient (CLI) | payer MEDICARE, OTHER ==
[~2024-11-26] MED LIST changes: +Doxycycline Mo100 M1 PO
[2024-11-28 09:07] LABS: Source, Urine Clean Catch
[2024-11-28 10:38] LABS: Appearance, Urine Clear (Clear); Bilirubin, Urine Neg (Neg); Blood, Urine Neg (Neg); Color, Urine Yellow (P-Yellow); Glucose Qualitative, Urine Neg (Neg); Ketones, Urine Neg (Neg); Leukocyte Esterase, Urine Neg (Neg); Nitrite, Urine Neg (Neg); Protein, Urine Neg (Neg); Urobilinogen, Urine NORM (Normal)
== END | disposition home or self-care (01) ==
LOC: LAB 17:00 → LAB SHORT 17:00
PROVIDERS: Physician Assistant
DX: N39.0 Urinary tract infection, site not specified (principal)
CPT/HCPCS: 81003

== ENCOUNTER → 2024-12-08 | Outpatient (CLI) | payer MEDICARE, OTHER ==
[2024-12-12 10:18] LABS: 6-ACETYLMORPHINE, URN, QUANT <10 ng/mL; CODEINE, URN, QUANT <20 ng/mL; HYDROCODONE, URN, QUANT 286 ng/mL; HYDROMORPHONE, URN, QUANT <20 ng/mL; MORPHINE, URN, QUANT <20 ng/mL; NORHYDROCODONE, URN, QUANT 198 ng/mL; NOROXYCODONE, URN, QUANT <20 ng/mL; NOROXYMORPHONE, URN, QUANT <20 ng/mL; OXYCODONE, URN, QUANT <20 ng/mL; OXYMORPHONE, URN, QUANT <20 ng/mL
== END ==
LOC: LAB 19:18 → LAB SHORT 19:18
PROVIDERS: Physician Assistant
DX: Z51.81 Encounter for therapeutic drug level monitoring (principal); Z79.891 Long term (current) use of opiate analgesic
CPT/HCPCS: G0480

== ENCOUNTER → 2024-12-17 | Outpatient (CLI) | payer MEDICARE, OTHER | LOC: LAB SHORT 07:40 → LAB 07:40 | DX: B35.1 Tinea unguium (principal); L60.2 Onychogryphosis | CPT/HCPCS: 88305; 88312 ==

== ENCOUNTER 2025-01-06 03:16 | Day surgery (SDC) | payer MEDICARE, OTHER | END 2025-01-06 23:42 | disposition home or self-care (01) | LOC: WOUND 03:16 | DX: S21.101A Unspecified open wound of right front wall of thorax without penetration into thoracic cavity, initial encounter (principal); F03.90 Unspecified dementia, unspecified severity, without behavioral disturbance, psychotic disturbance, mood disturbance, and anxiety; Y83.8 Other surgical procedures as the cause of abnormal reaction of the patient, or of later complication, without mention of misadventure at the time of the procedure | CPT/HCPCS: A6196; A6213; G0463 ==

== ENCOUNTER 2025-01-13 02:15 | Day surgery (SDC) | payer MEDICARE, OTHER | END 2025-01-13 23:43 | disposition home or self-care (01) | LOC: WOUND 02:15 | DX: S21.101D Unspecified open wound of right front wall of thorax without penetration into thoracic cavity, subsequent encounter (principal); X58.XXXD Exposure to other specified factors, subsequent encounter | CPT/HCPCS: A6196; A6213; G0463 ==

== ENCOUNTER 2025-01-21 05:50 | Day surgery (SDC) | payer MEDICARE, OTHER | END 2025-01-21 23:00 | LOC: WOUND 05:50 | DX: T81.49XA Infection following a procedure, other surgical site, initial encounter (principal); L02.213 Cutaneous abscess of chest wall; F03.90 Unspecified dementia, unspecified severity, without behavioral disturbance, psychotic disturbance, mood disturbance, and anxiety | CPT/HCPCS: G0463 ==

== ENCOUNTER 2025-03-04 02:58 | Day surgery (SDC) | payer MEDICARE, OTHER | END 2025-03-04 23:00 | disposition home or self-care (01) | LOC: WOUND 02:58 | DX: L02.212 Cutaneous abscess of back [any part, except buttock and flank] (principal) | CPT/HCPCS: A6196; G0463 ==

== ENCOUNTER 2025-03-18 03:38 | Day surgery (SDC) | payer MEDICARE, OTHER | END 2025-03-18 23:00 | disposition home or self-care (01) | LOC: WOUND 03:38 | DX: S21.201A Unspecified open wound of right back wall of thorax without penetration into thoracic cavity, initial encounter (principal); X58.XXXA Exposure to other specified factors, initial encounter | CPT/HCPCS: A6196; A6213; G0463 ==

== ENCOUNTER 2025-05-12 02:27 | Day surgery (SDC) | payer MEDICARE, OTHER | END 2025-05-12 23:01 | disposition home or self-care (01) | LOC: WOUND 02:27 | DX: S21.201D Unspecified open wound of right back wall of thorax without penetration into thoracic cavity, subsequent encounter (principal); X58.XXXD Exposure to other specified factors, subsequent encounter; F03.90 Unspecified dementia, unspecified severity, without behavioral disturbance, psychotic disturbance, mood disturbance, and anxiety; Z87.891 Personal history of nicotine dependence | CPT/HCPCS: A6196; A6213; G0463 ==

== ENCOUNTER 2025-05-19 02:33 | Day surgery (SDC) | payer MEDICARE, OTHER | END 2025-05-19 23:00 | disposition home or self-care (01) | LOC: WOUND 02:33 | DX: L02.211 Cutaneous abscess of abdominal wall (principal) | CPT/HCPCS: A6196; A6213; G0463 ==

== ENCOUNTER 2025-05-29 00:23 | Day surgery (SDC) | payer MEDICARE, OTHER | END 2025-05-29 23:00 | disposition home or self-care (01) | LOC: WOUND 00:23 | DX: S21.201D Unspecified open wound of right back wall of thorax without penetration into thoracic cavity, subsequent encounter (principal); X58.XXXD Exposure to other specified factors, subsequent encounter | CPT/HCPCS: A6196; A6213; G0463 ==

== ENCOUNTER 2025-06-12 01:29 | Day surgery (SDC) | payer MEDICARE, OTHER ==
[~2025-06-12 01:29] MED LIST changes: +ACET325 PO; +ALBU2.5V5 INH; +ANORO ELLIPTA1 EACH INH; +ANTIFUNGAL30 GM TOP; +BANOPHEN25 MG PO; +BISA10S PR; +DULCOLAX PO; +LOPE2C PO; +ONDA4ODT MM; +ROSUVASTATIN CAL5 MG PO; +SENNA LAXATIVE8.6 MG PO
== END 2025-06-12 23:00 | disposition home or self-care (01) ==
LOC: WOUND 01:29
DX: L02.2 Cutaneous abscess, furuncle and carbuncle of trunk (principal); S21.201D Unspecified open wound of right back wall of thorax without penetration into thoracic cavity, subsequent encounter
CPT/HCPCS: A6196; G0463

== ENCOUNTER 2025-06-25 00:17 | Day surgery (SDC) | payer MEDICARE, OTHER ==
[2025-06-25] MEDS ORDERED: Lidocaine HCl 4% Cream 5 GM ONE (09:01)
== END 2025-06-25 23:00 | disposition home or self-care (01) ==
LOC: WOUND 00:17
DX: S21.201A Unspecified open wound of right back wall of thorax without penetration into thoracic cavity, initial encounter (principal); X58.XXXA Exposure to other specified factors, initial encounter
CPT/HCPCS: A6196; A6213; A9270

== ENCOUNTER 2025-07-10 00:29 | Day surgery (SDC) | payer MEDICARE, OTHER | END 2025-07-10 23:00 | disposition home or self-care (01) | LOC: WOUND 00:29 | DX: L02.2 Cutaneous abscess, furuncle and carbuncle of trunk (principal); F03.90 Unspecified dementia, unspecified severity, without behavioral disturbance, psychotic disturbance, mood disturbance, and anxiety | CPT/HCPCS: A6196; A6213; G0463 ==

== ENCOUNTER → 2025-07-29 | Outpatient (CLI) | payer MEDICARE, OTHER ==
[2025-08-02 07:24] LABS: 6-ACETYLMORPHINE, URN, QUANT <10 ng/mL; CODEINE, URN, QUANT <20 ng/mL; HYDROCODONE, URN, QUANT 563 ng/mL; HYDROMORPHONE, URN, QUANT 23 ng/mL; MORPHINE, URN, QUANT <20 ng/mL; NORHYDROCODONE, URN, QUANT 278 ng/mL; NOROXYCODONE, URN, QUANT <20 ng/mL; NOROXYMORPHONE, URN, QUANT <20 ng/mL; OXYCODONE, URN, QUANT <20 ng/mL; OXYMORPHONE, URN, QUANT <20 ng/mL
== END | disposition home or self-care (01) ==
LOC: LAB 11:12 → LAB SHORT 11:12
PROVIDERS: Physician Assistant
DX: Z51.81 Encounter for therapeutic drug level monitoring (principal); Z79.899 Other long term (current) drug therapy
CPT/HCPCS: G0480

== ENCOUNTER 2025-08-10 02:34 | Day surgery (SDC) | payer MEDICARE, OTHER | END 2025-08-10 23:00 | disposition home or self-care (01) | LOC: WOUND 02:34 | DX: L02.2 Cutaneous abscess, furuncle and carbuncle of trunk (principal); F02.80 Dementia in other diseases classified elsewhere, unspecified severity, without behavioral disturbance, psychotic disturbance, mood disturbance, and anxiety | CPT/HCPCS: A6196; A6213; G0463 ==